=== PATIENT | female | born 1945 | race Two or more races ===

== ENCOUNTER 2019-02-14 21:44 | Inpatient (IN) | payer MEDICARE, MEDICAID ==
[~2019-02-14] VITALS: Ht 165.1 cm; Wt 61.9 kg
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
[2019-02-14 22:10] VITALS: BP 140/67
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
[2019-02-14 22:28] LABS: HEMATOCRIT 35.1 % (37.0-47.0); HEMOGLOBIN 12.6 G/DL (12.0-16.0); MEAN CORPUSCULAR VOLUME 83 FL (80-99); PLATELET COUNT 79 K/UL (150-450); RED BLOOD COUNT 4.25 M/UL (4.20-5.40); WHITE BLOOD COUNT 9.2 K/UL (4.8-10.8)
[2019-02-14 22:34] LABS: APPEARANCE,URINE CLOUDY; BILIRUBIN, URINE NEGATIVE (NEGATIVE); COLOR,URINE PALE YELLOW; GLUCOSE, URINE (UA) NEGATIVE (NEGATIVE); KETONES,URINE NEGATIVE (NEGATIVE); LEUKOCYTE ESTERASE ,URINE 3+ (NEGATIVE); NITRITE,URINE NEGATIVE (NEGATIVE); PH,URINE 7 (4.5-8.0); PROTEIN,URINE NEGATIVE (NEGATIVE); UROBILINOGEN,URINE NORMAL MG/DL (0.0-1.0)
[2019-02-14 22:36] LABS: ANION GAP 9 mmol/L (5-15); BLOOD UREA NITROGEN 22 mg/dL (7-18); CALCIUM 8.8 MG/DL (8.5-10.1); CARBON DIOXIDE 26 MMOL/L (21-32); CHLORIDE 100 MMOL/L (98-107); CREATININE 1.1 MG/DL (0.55-1.30); POTASSIUM 4.1 MMOL/L (3.5-5.1); SODIUM 135 MMOL/L (136-145)
[2019-02-14] MEDS ORDERED: cefTRIAXone 1 GM in NS 55 ML IVPB ONE (23:00)
--- NOTE | 2019-02-14 23:00 | NUR ---
ED Nurse Note: PT STATES SHE IS HUNGRY, VERIFIED W/ ERMD, PT GIVEN SANDWICH AND JUICE, PT PROVIDED W/ EXTRA WARM BLANKET FOR COMFORT, WILL CONT MONITOR. VSS.
[2019-02-14] MEDS ORDERED: SYNTHROID137 MCG ORAL (23:51)
[2019-02-14] MEDS ORDERED: KLONOPIN2 MG PO (23:51)
[2019-02-14] MEDS ORDERED: BISACODYL10 M1 RC (23:51)
[2019-02-14] MEDS ORDERED: ACETAMINOPHEN-1 EAC1 ORAL (23:51)
[2019-02-14] MEDS ORDERED: DEPAKOTE ER250 MG ORAL (23:51)
[2019-02-14] MEDS ORDERED: GLUCOPHAGE1000 MG ORAL (23:51)
[2019-02-14] MEDS ORDERED: BENADRYL25 M3 PO (23:51)
[2019-02-15] VITALS: BP 125/86
--- NOTE | 2019-02-15 00:30 | NUR ---
ED Nurse Note: PT VOID, PT CLEANED AND CHANGED INTO NEW GOWN, ALL SAFETY PRECAUTIONS IN PLACE, WILL CONT MONITOR. VSS
--- NOTE | 2019-02-15 01:09 | NUR ---
ED Nurse Note: REPORT GIVEN TO DONA CASH FROM [facility]
--- NOTE | 2019-02-15 01:15 | NUR ---
ED Nurse Note: PT TRANSFERRED TO [facility] VIA GURNEY BY MEMBERSHIP ASSISTANT, PT SENT W/ BELONGINGS W/ COMPLETED BELONGING LIST, IV INTACT AND PATENT, VSS, RESP EVEN AND UNLABORED ON RA. CARE ENDORSED TO [facility], DONA CASH.
--- NOTE | 2019-02-15 01:25 | NUR ---
NURSE NOTES: Patient admitted from ER via gurney. Patient is only Cypriot speaking, easily agitated, uncooperative. Noted with sacral redness. cleaned, applied cavilon and covered with optifoam. Bed alarm on zone 2, siderails x3. Will continue close monitoring.
--- NOTE | 2019-02-15 02:15 | NUR ---
NURSE NOTES: Placed call to Dr. Bunch for admitting orders. Awaiting call back.
--- NOTE | 2019-02-15 03:15 | NUR ---
NURSE NOTES: Placed 2nd call to Dr. Bunch for admission orders. Awaiting call back.
[2019-02-15 04:00] VITALS: BP 126/63
--- NOTE | 2019-02-15 04:05 | NUR ---
NURSE NOTES: 3rd call placed to Dr. Bunch for admission orders.
[2019-02-15] MEDS ORDERED: Tylenol #3 tab (300mg/30mg) ORAL PRN (04:45)
[2019-02-15] MEDS: metFORMIN 500mg tab ORAL SCH ×2 (06:30→16:43)
--- NOTE | 2019-02-15 06:46 | NUR ---
NURSE NOTES: Patient refused 0630 medication, started yelling when woken up and went back to sleep, covered her head with the blanket.
--- NOTE | 2019-02-15 07:41 | NUR ---
HAND-OFF: Report given to Julieta CARCAMO.
--- NOTE | 2019-02-15 07:42 | NUR ---
NURSE NOTES: Patient asleep, on room air, no sign of distress and shortness of breath; no sing of chest pain; IV LFA flushes well; side rails up x2, breaks engaged, bed at lowest position; call light within reach; will keep monitoring.
[2019-02-15 08:00] VITALS: BP 128/73
[2019-02-15] MEDS: clonazePAM 0.5mg tab ORAL SCH ×2 (08:47→21:49)
[2019-02-15 12:00] VITALS: BP 136/80
--- NOTE | 2019-02-15 13:16 | NUR ---
NURSE NOTES: Patient very agitated, trying to get out of bed. I communicated MD Bunch, waiting for order.
--- NOTE | 2019-02-15 13:21 | NUR ---
NURSE NOTES: Order received from MD Hernandez and carried out as ordered.
[2019-02-15] MEDS: LORazepam Inj 2mg/ml 1ml IV PRN ×2 (13:35→17:37)
[2019-02-15 16:00] VITALS: BP 132/77
--- NOTE | 2019-02-15 17:45 | NUR ---
NURSE NOTES: Patient agitated, trying getting out of the bed, patient is yelling on staffs, patient trying to kick staffs; I communicated MD Bunch regarding the matter. I received order and carried out as ordered.
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
--- NOTE | 2019-02-15 18:19 | General Progress Note ---
Subjective Allergies: Coded Allergies: No Known Allergies (Unverified , 02/14/19) Objective Last 24 Hour Vital Signs Date Time Temp Pulse Resp B/P (MAP) Pulse Ox O2 Delivery O2 Flow Rate FiO2 02/15/19 16:00 98.2 80 19 132/77 (95) 98 02/15/19 12:00 98.6 79 18 136/80 (98) 98 02/15/19 09:00 Room Air 02/15/19 08:00 98.7 77 18 128/73 (91) 97 02/15/19 04:00 97.6 62 18 126/63 (84) 97 02/15/19 02:02 Room Air 02/15/19 01:15 97.8 69 14 125/67 95 Room Air 02/15/19 00:00 98.1 65 16 125/86 95 Room Air 02/14/19 22:10 98.4 69 16 140/67 98 Room Air 02/14/19 22:10 67 16 Room Air 02/14/19 21:45 98.4 67 16 113/61 (78) 98 Room Air Intake and Output 02/14/19 02/15/19 19:00 07:00 Intake Total 150 ml Balance 150 ml Intake Oral 150 ml # Voids 2 Laboratory Tests 02/14/19 22:15: White Blood Count 9.2, Red Blood Count 4.25, Hemoglobin 12.6, Hematocrit 35.1L, Mean Corpuscular Volume 83, Mean Corpuscular Hemoglobin 29.6, Mean Corpuscular Hemoglobin Concent 35.8, Red Cell Distribution Width 11.0L, Platelet Count 79L, Mean Platelet Volume 7.0, Neutrophils (%) (Auto) , Lymphocytes (%) (Auto) , Monocytes (%) (Auto) , Eosinophils (%) (Auto) , Basophils (%) (Auto) , Differential Total Cells Counted 100, Neutrophils % (Manual) 62, Lymphocytes % ( Manual) 29, Monocytes % (Manual) 5, Eosinophils % (Manual) 3, Basophils % ( Manual) 0, Band Neutrophils 1, Platelet Estimate DecreasedL, Platelet Morphology Normal, Red Blood Cell Morphology Normal, Urine Color Pale yellow, Urine Appearance Cloudy, Urine pH 7, Urine Specific [place] 1.005, Urine Protein Negative, Urine Glucose (UA) Negative, Urine Ketones Negative, Urine Blood 2+H, Urine Nitrite Negative, Urine Bilirubin Negative, Urine Urobilinogen Normal, Urine Leukocyte Esterase 3+H, Urine RBC 2-4H, Urine WBC TntcH, Urine Squamous Epithelial Cells Few, Urine Bacteria ManyH, Sodium Level 135L, Potassium Level 4.1, Chloride Level 100, Carbon Dioxide Level 26, Anion Gap 9, Blood Urea Nitrogen 22H, Creatinine 1.1, Estimat Glomerular Filtration Rate , Glucose Level 222H, Calcium Level 8.8 Height (Feet): 5 Height (Inches): 5.00 Weight (Pounds): 140 Geoffrey Bunch MD Feb 15, 2019 18:19
--- NOTE | 2019-02-15 19:30 | NUR ---
HAND-OFF: Report given to Nilda/RN.
[2019-02-15 20:00] VITALS: BP 152/71
--- NOTE | 2019-02-15 20:00 | NUR ---
NURSE NOTES: Received report from DONA Plascencia. Patient confused, agitated, kicking up her legs. Pt on restraints. On room air, no signs of distress or labored breathing. IV intact, patent, and saline locked. Bed in lowest position. Sitter present. Will continue to monitor.
[2019-02-15] MEDS: Depakote ER 250mg tab ORAL SCH (21:50)
[2019-02-16] VITALS: BP 119/56
[2019-02-16] MEDS: LORazepam Inj 2mg/ml 1ml IV PRN ×3 (03:50→22:34)
[2019-02-16 04:00] VITALS: BP 139/69
[2019-02-16] MEDS: metFORMIN 500mg tab ORAL SCH ×2 (05:58→17:56)
--- NOTE | 2019-02-16 07:40 | NUR ---
HAND-OFF: Report given to DONA Padgett.
--- NOTE | 2019-02-16 07:58 | NUR ---
NURSE NOTES: received pt lying in bed, asleep after Ativan given by NOC nurse, on bilateral soft wrist restraints, padded siderails. LAC access saline locked. Bed locked at the lowest position possible, call light within easy reach, siderails up x3. Will continue to monitor pt and follow up with the plan of care.
[2019-02-16] MEDS: clonazePAM 0.5mg tab ORAL SCH ×3 (09:46→21:39)
[2019-02-16] MEDS: Depakote ER 250mg tab ORAL SCH ×3 (09:46→21:38)
--- NOTE | 2019-02-16 10:59 | General Progress Note ---
Assessment/Plan Assessment/Plan: IMPRESSION diabetes hypertension schizophrenia toxic metabolic encephalopathy acute psychosis UTI PLAN care as is add cipro ATivan restraints resume snf meds psych evaluation impression, plan, and exam edited and reviewed in detail care discussed with RN Subjective Allergies: Coded Allergies: No Known Allergies (Unverified , 02/14/19) Subjective care noted needs restraints Objective Last 24 Hour Vital Signs Date Time Temp Pulse Resp B/P (MAP) Pulse Ox O2 Delivery O2 Flow Rate FiO2 02/16/19 04:00 98.0 85 20 139/69 (92) 97 02/16/19 00:00 98.2 73 20 119/56 (77) 95 02/15/19 21:00 Room Air 02/15/19 20:00 98.1 83 20 152/71 (98) 98 02/15/19 16:00 98.2 80 19 132/77 (95) 98 02/15/19 12:00 98.6 79 18 136/80 (98) 98 Intake and Output 02/15/19 02/16/19 19:00 07:00 Intake Total 800 ml Balance 800 ml Intake Oral 800 ml # Voids 6 3 # Bowel Movements 3 Height (Feet): 5 Height (Inches): 5.00 Weight (Pounds): 140 Objective WDWN NAD clear breath sounds bilaterally without rhonchi or wheeze [id number] without MRG NABS nontender no HSM no CCE nonfocal confused and agitated Geoffrey Bunch MD Feb 16, 2019 10:59
[2019-02-16 12:00] VITALS: BP 116/72
[2019-02-16 16:00] VITALS: BP 119/82
--- NOTE | 2019-02-16 19:12 | NUR ---
HAND-OFF: Report given to DONA Munguia.
--- NOTE | 2019-02-16 19:25 | NUR ---
CASE MANAGEMENT: INITIAL REVIEW 73 YO F GABRIELLA FROM [facility] CC: INCREASE AGITATION PMHx: HTN. DM. SCHIZO. SI:AGITATION. T 98.4 HR 67 RR 16 B/P 113/61 SATS 98% ON RA NA 135 BUN 22 GLU 222 IS: NS BOLUS X 1 ROCEPHIN IV X1 PATIENT ADMITTED TO MED/SURG STATUS 02/14/2019 @ 2340 DCP: PATIENT TO BE DISCHARGED TO SNF ONCE MEDICALLY CLEARED. PLAN OF CARE: PSYCH EVAL 02/16/2019 SI:AGITATION. T 98 HR 85 RR 20 B/P 139/69 SATS 97% ON RA NO LABS TODAY IS: DEPAKOTE PO Q12H CIPRO PO Q12H METFORMIN PO BID BENADRYL PO QD SYNTHROID PO QD KLONOPIN PO Q12H MED/SURG STATUS DCP: PATIENT TO BE DISCHARGED TO SNF ONCE MEDICALLY CLEARED. Addendum: 02/17/19 at 1645 by June Linda CM INTERQUAL MET
--- NOTE | 2019-02-16 19:37 | NUR ---
NURSE NOTES: Received report from DONA Padgett. Patient sleeping. On room air, no signs of distress or labored breathing. IV intact, patent, and saline locked. Bilateral soft wrist restraints on. Bed in lowest position. Will continue to monitor.
[2019-02-16 20:00] VITALS: BP 124/55
[2019-02-16] MEDS: Ciprofloxacin 500mg tab ORAL SCH ×2 (21:00→21:38)
[2019-02-17] MEDS: LORazepam Inj 2mg/ml 1ml IV PRN ×3 (02:43→18:17)
[2019-02-17] MEDS: metFORMIN 500mg tab ORAL SCH ×2 (06:30→17:43)
--- NOTE | 2019-02-17 07:25 | NUR ---
NURSE NOTES: Received report from DONA Burks. Patient sleeping. On room air. No s/s of pain or distress. IV intact, patent, and saline lock. Bilateral soft wrist restraints on. Bed in lowest position and locked. Call light within reach. Will continue to monitor.
--- NOTE | 2019-02-17 07:27 | NUR ---
HAND-OFF: Report given to DONA Garibay and Tyson Le RN (Jamie).
--- NOTE | 2019-02-17 07:45 | NUR ---
NURSE NOTES: received pt lying in bed, awake, on bilateral soft wrist restraints, padded siderails. LFA access saline locked. Bed locked at the lowest position possible, call light within easy reach, siderails up x3. Will continue to monitor pt and follow up with the plan of care.
[2019-02-17 08:00] VITALS: BP 118/79
[2019-02-17] MEDS: Ciprofloxacin 500mg tab ORAL SCH ×2 (09:00→09:29)
[2019-02-17] MEDS: clonazePAM 0.5mg tab ORAL SCH ×2 (09:00→09:30)
[2019-02-17] MEDS: Depakote ER 250mg tab ORAL SCH ×2 (09:00→09:29)
--- NOTE | 2019-02-17 09:46 | NUR ---
NURSE NOTES: patient refused all am PO medication, nurse explained the reason why she has to take them but patient still refused. Meds were wasted, TRA Morales witnessed.
--- NOTE | 2019-02-17 10:57 | NUR ---
*-* NO INSURANCE INFORMATION IN THE BAR UNABLE TO SENF CLINICALS OR REVIEWS *-*
--- NOTE | 2019-02-17 11:49 | NUR ---
RD ASSESSMENT & RECOMMENDATIONS SEE CARE ACTIVITY FOR COMPLETE ASSESSMENT DAILY ESTIMATED NEEDS: Needs based on DM 62.5 25-30 kcals/kg 7745-8715 total kcals 1-1.5 g protein/kg 63-94 g total protein 25-30 mL/kg 0207-7652 total fluid mLs NUTRITION DIAGNOSIS: Increased pro needs r/t wound healing as evidenced by pt w/ sacral partial thickness wound. Altered nutrition related lab values r/t diabetes as evidenced by BG on adm 222. (CURRENT DIET: CCHO MED puree) PO DIET RECOMMENDATIONS-->>DIET CHANGE TO CCHO LOW for improved glycemic control (texture as tolerated) ADDITIONAL RECOMMENDATIONS: 1) Obtain a calibrated bed scale wt as able 2) HIV COUNSELOR eval for possible diet texture upgrade for improved acceptance 3) DIET CHANGE TO CCHO LOW for improved BG as pt refusing meds 4) Glucerna 1 tetra madalyn BID w/ cont variable po intake 5) Wound care: add CRYSTAL BID
[2019-02-17 12:00] VITALS: BP 118/56
--- NOTE | 2019-02-17 13:42 | General Progress Note ---
Assessment/Plan Assessment/Plan: IMPRESSION diabetes hypertension schizophrenia toxic metabolic encephalopathy acute psychosis UTI PLAN care as is add cipro ATivan restraints resume snf meds psych evaluation not safe for snf as patient is not cooperative impression, plan, and exam edited and reviewed in detail care discussed with RN Subjective Allergies: Coded Allergies: No Known Allergies (Unverified , 02/14/19) Subjective care noted needs restraints very agitated refusing meds Objective Last 24 Hour Vital Signs Date Time Temp Pulse Resp B/P (MAP) Pulse Ox O2 Delivery O2 Flow Rate FiO2 02/17/19 12:00 98.3 65 21 118/56 (76) 94 02/17/19 09:00 Room Air 02/17/19 08:00 98.6 81 18 118/79 (92) 98 02/16/19 21:00 Room Air 02/16/19 20:00 97.4 64 21 124/55 (78) 95 02/16/19 16:00 97.4 69 18 119/82 (94) 96 Intake and Output 02/16/19 02/17/19 19:00 07:00 Intake Total 100 ml Balance 100 ml Other 100 ml # Voids 2 Height (Feet): 5 Height (Inches): 5.00 Weight (Pounds): 140 Objective WDWN NAD clear breath sounds bilaterally without rhonchi or wheeze [id number] without MRG NABS nontender no HSM no CCE nonfocal confused and agitated Geoffrey Bunch MD Feb 17, 2019 13:42
[2019-02-17 16:00] VITALS: BP 143/62
--- NOTE | 2019-02-17 16:39 | NUR ---
CASE MANAGEMENT: REVIEW 02/17/2019 SI:AGITATION. T 98.3 HR 65 RR 21 B/P 118/56 SATS 94% ON RA NO LABS TODAY IS: DEPAKOTE PO Q12H CIPRO PO Q12H METFORMIN PO BID BENADRYL PO QD SYNTHROID PO QD KLONOPIN PO Q12H MED/SURG STATUS DCP: PATIENT TO BE DISCHARGED TO SNF ONCE MEDICALLY CLEARED.
[2019-02-17] MEDS ORDERED: NS 275ml ONE (17:35)
[2019-02-17] MEDS ORDERED: Tubing IV Secondary IV ONE (17:35)
--- NOTE | 2019-02-17 19:37 | NUR ---
HAND-OFF: Report given to DONA Munguia.
--- NOTE | 2019-02-17 19:45 | NUR ---
NURSE NOTES: Received report from DONA Garibay. Patient Tajik speaking. A&Ox1-2. On room air, no signs of distress or labored breathing. IV intact, patent, and infusing IV antibiotics. Bilateral soft wrist restraints on. Bed in lowest position with call light in reach. Will continue with plan of care.
[2019-02-17 20:00] VITALS: BP 136/59
[2019-02-17] MEDS: Depakote ER 500mg tab ORAL SCH ×2 (21:00→21:09)
[2019-02-18] VITALS: BP 128/58
[2019-02-18] MEDS: LORazepam Inj 2mg/ml 1ml IV PRN ×4 (00:26→21:45)
--- NOTE | 2019-02-18 00:30 | Consultation ---
DATE OF CONSULTATION: 02/17/2019 CONSULTING PHYSICIAN: Marilyn Liriano M.D. HISTORY OF PRESENT ILLNESS: The patient is a 73-year-old female with a history of diabetes, hypertension, schizophrenia, and dementia who has been admitted to the hospital for medical stabilization. The patient has been violent in the hospital. She is uncooperative, refusing p.o. medication and care. The patient not following staff's direction. The patient has cognitive impairment. PAST PSYCHIATRIC HISTORY: Schizophrenia and dementia. PAST MEDICAL HISTORY: Diabetes and hypertension. ALLERGIES: No known drug allergies. SUBSTANCE ABUSE HISTORY: No known history of illicit drug use or alcohol. MENTAL STATUS EXAMINATION: Alert and oriented x3. Mood is agitated. Affect is constricted. Congruent with mood. Thought process is concrete. Thought content, no suicidal or homicidal ideation. ASSESSMENT: [place] I Schizophrenia. Dementia with behavior disturbance. [place] II Deferred. [place] III As above. [place] IV Low. [place] V 20. PLAN: 1. The patient will be continued on Ativan. 2. We will also add another medication to lower her agitation. 3. Provide the patient with reality orientation and supportive therapy. Marilyn Liriano M.D. DR: HILL JOB#: [id number] CC:
[2019-02-18 04:00] VITALS: BP 94/64
[2019-02-18] MEDS: metFORMIN 500mg tab ORAL SCH ×2 (06:06→17:06)
--- NOTE | 2019-02-18 07:47 | NUR ---
HAND-OFF: Report given to DONA Plascencia.
--- NOTE | 2019-02-18 07:52 | NUR ---
NURSE NOTES: Patient awake, very confused; Yakut speaking; on room air, no sign of distress and shortness of breath; no sing of chest pain; IV Left FA flushes well; bed at lowest position, side rails up x2, breaks engaged; bilateral soft restrains in place; bed alarm on; will keep monitoring.
[2019-02-18 08:00] VITALS: BP 133/54
--- NOTE | 2019-02-18 08:34 | General Progress Note ---
Assessment/Plan Assessment/Plan: IMPRESSION diabetes hypertension schizophrenia toxic metabolic encephalopathy acute psychosis UTI PLAN care as is change cipro to zosyn ATivan restraints advance psych rx resume snf meds hope to dc soon not safe for snf as patient is not cooperative impression, plan, and exam edited and reviewed in detail care discussed with RN Subjective Allergies: Coded Allergies: No Known Allergies (Unverified , 02/14/19) Subjective care noted needs restraints very agitated refusing meds Objective Last 24 Hour Vital Signs Date Time Temp Pulse Resp B/P (MAP) Pulse Ox O2 Delivery O2 Flow Rate FiO2 02/18/19 08:00 97.9 65 18 133/54 (80) 98 02/18/19 04:00 98.4 66 20 94/64 (74) 97 02/18/19 00:00 97.7 59 18 128/58 (81) 97 02/17/19 21:00 Room Air 02/17/19 20:00 98.1 75 20 136/59 (84) 94 02/17/19 16:00 97.6 67 19 143/62 (89) 97 02/17/19 12:00 98.3 65 21 118/56 (76) 94 02/17/19 09:00 Room Air Intake and Output 02/17/19 02/18/19 18:59 06:59 Intake Total 500 ml 200 ml Balance 500 ml 200 ml IV Total 200 ml Other 500 ml # Voids 2 Height (Feet): 5 Height (Inches): 5.00 Weight (Pounds): 140 Objective WDWN NAD clear breath sounds bilaterally without rhonchi or wheeze [id number] without MRG NABS nontender no HSM no CCE nonfocal confused and agitated Geoffrey Bunch MD Feb 18, 2019 08:34
[2019-02-18] MEDS: Depakote ER 500mg tab ORAL SCH ×2 (08:43→21:44)
[2019-02-18 12:00] VITALS: BP 127/61
[2019-02-18] MEDS: Piperacillin/Tazobactam 3.375 GM in NS 110 ML IVPB SCH ×2 (13:23→21:57)
--- NOTE | 2019-02-18 14:14 | NUR ---
*-* INSURANCE *-* ALL CLINICALS AND REVIEWS HAVE BEEN FAXED TO: [employer] AUTH# [id number] GLORY: DEBBI F:[phone] (FAX CLINICALS)
[2019-02-18 16:00] VITALS: BP 130/60
--- NOTE | 2019-02-18 19:39 | NUR ---
HAND-OFF: Report given to DONA Gilmore.
--- NOTE | 2019-02-18 20:15 | NUR ---
NURSE NOTES: PATIENT IN BED, ASLEEP, AROUSABLE TO TOUCH, ALERT TO NAME. IV IN PLACE, PATENT. PATIENT ON BILATERAL SOFT WRIST RESTRAINTS FOR PATIENT SAFETY. NO S/S DISTRESS OR PAIN NOTED. BED IN LOWEST POSITION, LOCKED, BED ALARM ON. WILL CONTINUE TO MONITOR.
[2019-02-18 20:50] VITALS: BP 125/63
[2019-02-19 00:43] VITALS: BP 131/55
[2019-02-19] MEDS: LORazepam Inj 2mg/ml 1ml IV PRN ×5 (01:38→17:18)
--- NOTE | 2019-02-19 01:38 | NUR ---
NURSE NOTES: PATIENT RESTLESS, ATIVAN 1 MG IV PRN WAS GIVEN NEEDED. PATIENT STILL TRYING TO GET OUT RESTRAINTS. NEW IV ALSO INSERTED ON LEFT FOREARM 22 GAUGE, OLD IV ON LEFT FOREARM REMOVED. WILL CONTINUE TO MONITOR.
[2019-02-19 04:51] VITALS: BP 138/61
[2019-02-19] MEDS: metFORMIN 500mg tab ORAL SCH ×2 (05:39→17:18)
[2019-02-19] MEDS: Piperacillin/Tazobactam 3.375 GM in NS 110 ML IVPB SCH ×3 (05:40→22:04)
--- NOTE | 2019-02-19 05:45 | Progress Note ---
DATE: 02/18/2019 NOTE: POOR AUDIO SUBJECTIVE: The patient presented with anxiety behavior. MENTAL STATUS EXAMINATION: confused, disoriented anxious. Thought process, there is a paucity of thought content. Thought content, no suicidal or homicidal ideation. PLAN: Continue current medications. Provide the patient with reality orientation Marilyn Liriano M.D. DR: HANANE JOB#: [id number] CC: FARHAT
--- NOTE | 2019-02-19 07:16 | NUR ---
HAND-OFF: Report given to ALIREZA KUMAR RN.
--- NOTE | 2019-02-19 07:21 | NUR ---
NURSE NOTES: Patient awake, Azeri speaking; on room air, no sign of distress and shortness of breath; no sign of chest pain; IV Left FA Zosyn running; side rails padded for seizure percussion, side rails up x2, breaks engaged, bed at lowest position; bilateral soft restrain in place. will keep monitoring.
[2019-02-19 08:00] VITALS: BP 130/66
[2019-02-19] MEDS: Depakote ER 500mg tab ORAL SCH ×2 (09:08→21:07)
--- NOTE | 2019-02-19 10:05 | General Progress Note ---
Assessment/Plan Assessment/Plan: IMPRESSION diabetes hypertension schizophrenia toxic metabolic encephalopathy acute psychosis UTI PLAN care as is on zosyn ATivan restraints advance psych rx- and await clearance snf meds hope to dc soon not safe for snf as patient is not cooperative impression, plan, and exam edited and reviewed in detail care discussed with RN Subjective Allergies: Coded Allergies: No Known Allergies (Unverified , 02/14/19) Subjective care noted needs restraints still agitated still refusing meds Objective Last 24 Hour Vital Signs Date Time Temp Pulse Resp B/P (MAP) Pulse Ox O2 Delivery O2 Flow Rate FiO2 02/19/19 09:00 Room Air 02/19/19 08:00 97.7 77 18 130/66 (87) 95 02/19/19 04:51 97.9 56 18 138/61 (86) 94 02/19/19 00:43 97.2 57 18 131/55 (80) 94 02/18/19 21:00 Room Air 02/18/19 20:50 97.7 57 18 125/63 (83) 94 02/18/19 16:00 98.0 63 18 130/60 (83) 98 02/18/19 12:00 97.8 71 19 127/61 (83) 98 Intake and Output 02/18/19 02/19/19 18:59 06:59 Intake Total 710.0 ml 137.5 ml Output Total 2 ml Balance 710.0 ml 135.5 ml IV Total 110.0 ml 137.5 ml Other 600 ml Output Urine Total 2 ml # Voids 2 # Bowel Movements 1 Height (Feet): 5 Height (Inches): 5.00 Weight (Pounds): 135 Objective WDWN NAD clear breath sounds bilaterally without rhonchi or wheeze [id number] without MRG NABS nontender no HSM no CCE nonfocal confused and agitated Geoffrey Bunch MD Feb 19, 2019 10:05
--- NOTE | 2019-02-19 10:25 | NUR ---
*-* INSURANCE *-* UPDATED CLINICALS HAVE BEEN FAXED TO: [employer] AUTH# [id number] GLORY: DEBBI F:[phone] (FAX CLINICALS)
[2019-02-19 12:00] VITALS: BP 136/70
--- NOTE | 2019-02-19 15:41 | NUR ---
CASE MANAGEMENT: REVIEW 02/18/2019 SI:AGITATION. T 98.3 HR 79 RR 18 B/P 136/70 SATS 96% ON RA NO LABS TODAY IS: DEPAKOTE PO Q12H CIPRO PO Q12H METFORMIN PO BID BENADRYL PO QD SYNTHROID PO QD KLONOPIN PO Q12H MED/SURG STATUS DCP: PATIENT TO BE DISCHARGED TO SNF ONCE MEDICALLY CLEARED. 02/19/2019 SI:AGITATION. T 98.3 HR 79 RR 18 B/P 136/70 SATS 96% ON RA NO LABS TODAY IS: DEPAKOTE PO Q12H CIPRO PO Q12H METFORMIN PO BID BENADRYL PO QD SYNTHROID PO QD KLONOPIN PO Q12H MED/SURG STATUS DCP: PATIENT TO BE DISCHARGED TO SNF ONCE MEDICALLY CLEARED. PLAN OF CARE: AWAITING PSYCH CLEARANCE
[2019-02-19 16:00] VITALS: BP 138/76
--- NOTE | 2019-02-19 19:49 | NUR ---
HAND-OFF: Report given to Mando figueroa/DONA Martinez.
--- NOTE | 2019-02-19 19:49 | NUR ---
NURSE NOTES: Received patient from DONA Plascencia. Patient is awake and confused laying on the bed with bilateral soft restraints on the wrist for safety of the patient. Pulse is present on the bilateral wrist, warm to touch, normal skin color, and with mobility. Patient is breathing evenly and unlabored without signs of distress, discomfort, or SOB on a room air. No signs of pain noted at this time. 22 g IV noted on the LFA intact, clean, and dry. Side rails are padded for seizure precaution. Bed is placed at the lowest with alarm and brakes on. Call light is placed within reach for any assistance needed. Will continue to monitor.
[2019-02-19 20:00] VITALS: BP 126/70
[2019-02-20] VITALS: BP 139/66
[2019-02-20] MEDS: LORazepam Inj 2mg/ml 1ml IV PRN ×4 (00:15→15:49)
--- NOTE | 2019-02-20 03:15 | Progress Note ---
DATE: 02/19/2019 SUBJECTIVE: The patient is calmer. Still has episodes of agitation. Responds to internal stimuli. The patient does not follow directions. She has poor memory. Not engaged. She still has waxing and waning consciousness. MENTAL STATUS EXAMINATION: The patient is asleep, arousable with verbal stimuli. Has psychomotor agitation. Mood is neutral. Affect is flat. Thought process, there is some paucity of thought content. Thought content, no suicidal or homicidal ideations. ASSESSMENT: Encephalopathy . PLAN: We will continue current medication. Provide the patient with reality orientation. Marilyn Liriano M.D. DR: STEFAN JOB#: [id number] CC:
[2019-02-20 04:00] VITALS: BP 139/77
[2019-02-20] MEDS: metFORMIN 500mg tab ORAL SCH ×2 (05:57→15:49)
--- NOTE | 2019-02-20 06:00 | NUR ---
NURSE NOTES: PATIENT ASLEEP, NO DISTRESS.
[2019-02-20] MEDS: Piperacillin/Tazobactam 3.375 GM in NS 110 ML IVPB SCH ×3 (06:14→22:29)
--- NOTE | 2019-02-20 07:06 | NUR ---
HAND-OFF: Report given to DONA Plascencia. Patient has new 22 g IV site on the right hand due to the previous site being puffy and red. Informed DONA Plascencia.
--- NOTE | 2019-02-20 07:38 | NUR ---
NURSE NOTES: Patient asleep; on room air, no sign of distress and shortness of breath; no sing of chest pain; Bilateral soft wrist restrain in place; side rails padded for seizure percussion, side rails up x2, breaks engaged, bed alarm on; will keep monitoring.
[2019-02-20 08:00] VITALS: BP 131/83
[2019-02-20] MEDS: Depakote ER 500mg tab ORAL SCH ×2 (08:22→20:51)
--- NOTE | 2019-02-20 08:30 | General Progress Note ---
Assessment/Plan Assessment/Plan: IMPRESSION diabetes hypertension schizophrenia toxic metabolic encephalopathy acute psychosis UTI PLAN care as is on zosyn x 5 days ATivan restraints advance psych rx- and await clearance snf meds dc if cleared by psych impression, plan, and exam edited and reviewed in detail care discussed with RN Subjective ROS Limited/Unobtainable: Yes Allergies: Coded Allergies: No Known Allergies (Unverified , 02/14/19) Subjective care noted needs restraints psych appreciated Objective Last 24 Hour Vital Signs Date Time Temp Pulse Resp B/P (MAP) Pulse Ox O2 Delivery O2 Flow Rate FiO2 02/20/19 04:00 97.4 68 20 139/77 (97) 97 02/20/19 00:00 98.2 65 18 139/66 (90) 95 02/19/19 21:00 Room Air 02/19/19 20:00 98.0 72 16 126/70 (88) 96 02/19/19 16:00 98.5 82 18 138/76 (96) 97 02/19/19 12:00 98.3 79 18 136/70 (92) 96 02/19/19 09:00 Room Air Intake and Output 02/19/19 02/20/19 19:00 07:00 Intake Total 1032.5 ml 350.0 ml Balance 1032.5 ml 350.0 ml Intake Oral 840 ml 240 ml IV Total 192.5 ml 110.0 ml # Voids 6 1 # Bowel Movements 2 1 Height (Feet): 5 Height (Inches): 5.00 Weight (Pounds): 135 Objective WDWN NAD clear breath sounds bilaterally without rhonchi or wheeze [id number] without MRG NABS nontender no HSM no CCE nonfocal confused Geoffrey Bunch MD Feb 20, 2019 08:30
--- NOTE | 2019-02-20 09:53 | NUR ---
NURSE NOTES: There is a discharge order for this patient. I communicated MD Liriano, if MD roman clear patient for discharge. Waiting for order.
--- NOTE | 2019-02-20 10:45 | NUR ---
NURSE NOTES: MD Liriano cleared patient for discharge to SNF.
[2019-02-20] MEDS ORDERED: DIPHENHYDRAMINE25 M1 ORAL (11:30)
[2019-02-20] MEDS ORDERED: DIVALPROEX SOD500 MG PO (11:32)
[2019-02-20] MEDS ORDERED: DIVALPROEX SOD500 M2 PO (11:36)
[2019-02-20] MEDS ORDERED: METFORMIN HCL500 M1 ORAL (11:38)
[2019-02-20] MEDS ORDERED: ZOSYN 3.373.375 GM/1 IVPB (11:39)
--- NOTE | 2019-02-20 11:58 | NUR ---
DISCHARGE PLANNING: NOTE CLINICALS FAXED TO [facility]
[2019-02-20 11:59] VITALS: BP 136/80
--- NOTE | 2019-02-20 12:44 | NUR ---
*-* INSURANCE *-* UPDATED CLINICALS HAVE BEEN FAXED TO: [employer] AUTH# [id number] GLORY: DEBBI F:[phone] (FAX CLINICALS)
[2019-02-20 16:00] VITALS: BP 130/74
--- NOTE | 2019-02-20 16:35 | NUR ---
CASE MANAGEMENT: REVIEW 02/20/2019 SI:AGITATION. T 98.4 HR 80 RR 19 B/P 130/74 SATS 97% ON RA NO LABS TODAY IS: DEPAKOTE PO Q12H CIPRO PO Q12H METFORMIN PO BID BENADRYL PO QD SYNTHROID PO QD KLONOPIN PO Q12H MED/SURG STATUS DCP: PATIENT TO BE DISCHARGED TO SNF ONCE MEDICALLY CLEARED.
--- NOTE | 2019-02-20 19:34 | NUR ---
HAND-OFF: Report given to DONA Zuniga.
--- NOTE | 2019-02-20 19:55 | NUR ---
NURSE NOTES: Received patient in bed, asleep, no acute distress noted, on room air, patient is incontinent of bowel and bladder, has non behavioral bilateral soft wrist restraints, VSS, afebrile, call light is within reach, bed is in low position, locked and alarm is on. Will continue to monitor for safety and comfort, ensure patients needs are met.
[2019-02-20 20:00] VITALS: BP 141/67
--- NOTE | 2019-02-20 23:30 | Progress Note ---
DATE: 02/20/2019 SUBJECTIVE: The patient is presenting with anxiety, agitation, waxing and waning consciousness, memory impairment, not able to answer the questions. She is calmer today, more cooperative. MENTAL STATUS EXAMINATION: The patient is alert; however confused, disoriented. Mood is anxious. Affect is constricted. Congruent mood. Thought process is concrete. Thought content, no suicidal or homicidal ideation. ASSESSMENT: Encephalopathy. PLAN: 1. We will continue current medications. 2. Provide the patient with the reality orientation and supportive therapy. Marilyn Liriano M.D. DR: Mj JOB#: [id number] CC:
[2019-02-21] VITALS: BP 123/67
[2019-02-21 04:00] VITALS: BP 131/58
[2019-02-21] MEDS: Piperacillin/Tazobactam 3.375 GM in NS 110 ML IVPB SCH ×3 (05:53→21:02)
[2019-02-21] MEDS: metFORMIN 500mg tab ORAL SCH ×2 (06:17→17:08)
--- NOTE | 2019-02-21 07:30 | NUR ---
HAND-OFF: Report given to Lois CARCAMO.
--- NOTE | 2019-02-21 07:39 | NUR ---
NURSE NOTES: received report from DONA Holland. patient in bed. having breakfast. disoriented. aggressive. yakut only. IV RH hep. intact. running zosyn. bed in the lowest position . call light within reach. alarm on. cleared by Dr. terrazas for DC. ESCL colionized by DR. Alcantar. will continue to provide plan of care.
[2019-02-21 08:00] VITALS: BP 144/65
--- NOTE | 2019-02-21 08:54 | General Progress Note ---
Assessment/Plan Assessment/Plan: IMPRESSION diabetes hypertension schizophrenia toxic metabolic encephalopathy acute psychosis UTI PLAN care as is on zosyn x 3 days restraints as needed advance psych rx- and await clearance snf meds will need locked snf unit impression, plan, and exam edited and reviewed in detail care discussed with RN Subjective Allergies: Coded Allergies: No Known Allergies (Unverified , 02/14/19) Subjective care noted psych appreciated Objective Last 24 Hour Vital Signs Date Time Temp Pulse Resp B/P (MAP) Pulse Ox O2 Delivery O2 Flow Rate FiO2 02/21/19 08:00 98.6 76 18 144/65 (91) 99 02/21/19 04:00 96.1 55 18 131/58 (82) 02/21/19 00:00 97.5 60 18 123/67 (85) 02/20/19 21:00 Room Air 02/20/19 20:00 97.3 61 18 141/67 (91) 02/20/19 16:00 98.4 80 19 130/74 (92) 97 02/20/19 11:59 98.6 85 20 136/80 (98) 98 02/20/19 09:00 Room Air Intake and Output 02/20/19 02/21/19 19:00 07:00 Intake Total 1080.0 ml Balance 1080.0 ml Intake Oral 860 ml IV Total 220.0 ml # Voids 6 # Bowel Movements 2 Height (Feet): 5 Height (Inches): 5.00 Weight (Pounds): 135 Objective WDWN NAD clear breath sounds bilaterally without rhonchi or wheeze [id number] without MRG NABS nontender no HSM no CCE nonfocal confused Geoffrey Bunch MD Feb 21, 2019 08:54
[2019-02-21] MEDS: Depakote ER 500mg tab ORAL SCH ×2 (08:58→20:57)
--- NOTE | 2019-02-21 09:33 | NUR ---
RD ASSESSMENT & RECOMMENDATIONS SEE CARE ACTIVITY FOR COMPLETE ASSESSMENT DAILY ESTIMATED NEEDS: Needs based on DM 62.5kg 25-30 kcals/kg 9520-4646 total kcals 1-1.5 g protein/kg 63-94 g total protein 25-30 mL/kg 6598-9184 total fluid mLs NUTRITION DIAGNOSIS: 1) Increased pro needs r/t wound healing as evidenced by pt w/ sacral partial thickness wound. 2) Altered nutrition related lab values r/t diabetes as evidenced by BG on adm 222. CURRENT DIET: CCHO MED puree PO DIET RECOMMENDATIONS: CCHO LOW for improved glycemic control (texture as tolerated) --- ADDITIONAL RECOMMENDATIONS: 1) Obtain a calibrated bed scale wt as able 2) RISK CONSULTANT eval for possible diet texture upgrade for improved acceptance 3) DIET CHANGE TO CCHO LOW for improved BG if pt continues to refuse meds 4) Glucerna 1 tetra maadlyn BID w/ cont variable po intake 5) Wound care: add CRYSTAL BID + Vit C 250mg daily + MVI x1
[2019-02-21] MEDS: LORazepam Inj 2mg/ml 1ml IV PRN (09:41)
--- NOTE | 2019-02-21 10:21 | NUR ---
DISCHARGE PLANNING: NOTE (UPDATED) [facility] NOT WILLING TO ACCEPT THIS PATIENT. PATIENT REFERRED TO THE FOLLOWING LOCKED FACILITIES [facility] >> [facility] HAS RECEIVED CLINICALS AND IS REVIEWING FOR ACCEPTANCE [facility] >>> [facility] UNABLE TO ACCEPT DUE TO NO FEMALE BEDS AT THIS TIME. [facility] >>>> PER HECTOR SHE RECEIVED CLINICALS AND REVIEWING FOR ACCEPTANCE.
--- NOTE | 2019-02-21 11:34 | NUR ---
*-* INSURANCE *-* UPDATED CLINICALS AND REVIEWS HAVE BEEN FAXED TO: [employer] AUTH# [id number] GLORY: DEBBI F:[phone] (FAX CLINICALS)
[2019-02-21 12:00] VITALS: BP 137/64
[2019-02-21 16:00] VITALS: BP 131/82
--- NOTE | 2019-02-21 19:28 | NUR ---
NURSE NOTES: Pt received in bed, restraints in place, greeted me when I spoke to her, asked how she was doing and she said well, gave the patient something to drink, IV in place, will continue to monitor.
--- NOTE | 2019-02-21 19:31 | NUR ---
HAND-OFF: Report given to DONA Schumacher.
[2019-02-21 20:00] VITALS: BP 135/86
[2019-02-22] VITALS: BP 150/79
--- NOTE | 2019-02-22 00:20 | Psych Consult Progress Note ---
Psychiatry Progress Note Psychiatry Progress Note Medications Current Medications Medications (Trade) Dose Ordered Sig/Jesenia Route PRN Reason Start Time Stop Time Status Last Admin Dose Admin Acetaminophen/ Codeine Phosphate (Tylenol #3) 1 tab Q6H PRN ORAL For Pain 02/15/19 04:45 02/22/19 04:44 Bisacodyl (Dulcolax) 10 mg DAILY PRN RECTAL Constipation 02/15/19 04:45 03/17/19 04:44 Diphenhydramine HCl (Benadryl) 25 mg DAILY ORAL 02/15/19 09:00 03/17/19 08:59 02/21/19 08:58 Diphenhydramine HCl (Benadryl) 25 mg Q6H PRN IM agitation 02/17/19 13:45 03/19/19 13:44 Divalproex Sodium (Depakote ER) 500 mg EVERY 12 HOURS ORAL 02/17/19 21:00 03/19/19 20:59 02/21/19 20:57 Levothyroxine Sodium (Synthroid) 75 mcg DAILY@0630 ORAL 02/15/19 06:30 03/17/19 06:29 02/21/19 06:17 Lorazepam (Ativan 2mg/ml 1ml) 1 mg Q3H PRN IV For Anxiety 02/15/19 13:30 02/22/19 13:29 02/21/19 09:41 Metformin HCl (Glucophage) 500 mg BID@0630,1630 ORAL 02/15/19 06:30 03/17/19 06:29 02/21/19 17:08 Piperacillin Sod/ Tazobactam Sod 3.375 gm/Sodium Chloride 110 ml @ 27.5 mls/hr EVERY 8 HOURS IVPB 02/18/19 14:00 02/23/19 13:59 02/21/19 21:02 Neurological/Psychiatric: Reports: anxiety, depressed, emotional problems Allergies: Coded Allergies: No Known Allergies (Unverified , 02/14/19) Objective Data Height (Feet): 5 Height (Inches): 5.00 Weight (Pounds): 135 Appearance: disheveled Behavior Mannerisms: poor eye contact Mental Status Exam - Affect: labile Mental Status Exam - Mood: anxious, agitated Speech: clear Mental Status Exam - Cognition: no abnormalities Assessment/Plan Assessment/Plan: Encephalopathy. PLAN: 1. We will continue current medications. 2. Provide the patient with the reality orientation and supportive therapy. Marilyn Liriano MD Feb 22, 2019 00:20
[2019-02-22 04:00] VITALS: BP 145/87
[2019-02-22] MEDS: Piperacillin/Tazobactam 3.375 GM in NS 110 ML IVPB SCH ×3 (05:30→21:19)
[2019-02-22] MEDS: metFORMIN 500mg tab ORAL SCH ×2 (06:09→16:56)
--- NOTE | 2019-02-22 07:41 | NUR ---
HAND-OFF: Report given to Mimi Kinney RN.
--- NOTE | 2019-02-22 07:56 | NUR ---
NURSE NOTES: Received report from DONA Jackson. Rounding done with outgoing nurse. Patient asleep. Pt on restraints. Cobasesyn is running at this time. Bed in lowest position, call light within reach. Will continue to monitor.
[2019-02-22 08:00] VITALS: BP 130/63
[2019-02-22] MEDS: Depakote ER 500mg tab ORAL SCH ×2 (09:15→20:24)
[2019-02-22] MEDS: LORazepam Inj 2mg/ml 1ml IV PRN ×4 (11:35→23:27)
--- NOTE | 2019-02-22 11:50 | General Progress Note ---
Assessment/Plan Assessment/Plan: IMPRESSION diabetes hypertension schizophrenia toxic metabolic encephalopathy acute psychosis UTI PLAN care as is on zosyn x 2 days restraints as needed advance psych rx- and await clearance snf meds will need locked snf unit- awaiting CM to assist impression, plan, and exam edited and reviewed in detail care discussed with RN Subjective Allergies: Coded Allergies: No Known Allergies (Unverified , 02/14/19) Subjective care noted psych appreciated Objective Last 24 Hour Vital Signs Date Time Temp Pulse Resp B/P (MAP) Pulse Ox O2 Delivery O2 Flow Rate FiO2 02/22/19 09:00 Room Air 02/22/19 08:00 97.0 62 16 130/63 (85) 99 02/22/19 04:00 97.0 82 18 145/87 (106) 97 02/22/19 00:00 97.2 75 19 150/79 (102) 98 02/21/19 21:00 Room Air 02/21/19 20:00 98.1 67 18 135/86 (102) 97 02/21/19 16:00 98.5 76 18 131/82 (98) 98 02/21/19 12:00 97.9 79 18 137/64 (88) 99 Intake and Output 02/21/19 02/22/19 19:00 07:00 Intake Total 192.5 ml 1570.0 ml Output Total 400 ml Balance 192.5 ml 1170.0 ml Intake Oral 860 ml IV Total 192.5 ml 110.0 ml Other 600 ml Output Urine Total 400 ml # Voids 4 # Bowel Movements 2 Height (Feet): 5 Height (Inches): 5.00 Weight (Pounds): 135 Objective WDWN NAD clear breath sounds bilaterally without rhonchi or wheeze [id number] without MRG NABS nontender no HSM no CCE nonfocal confused Geoffrey Bunch MD Feb 22, 2019 11:50
[2019-02-22 12:00] VITALS: BP 125/73
--- NOTE | 2019-02-22 13:40 | NUR ---
NURSE NOTES: Dr. Bunch ordered ativan 1mg iv q3 prn for anxiety. Noted and carried out.
--- NOTE | 2019-02-22 15:16 | NUR ---
DISCHARGE PLANNING: NOTE F/U CALL PLACED TO [facility] AND [facility] ADMISSIONS IS NOT AVAILABLE ON THE WEEKENDS. NO FAMILY LISTED ON F/S SSW CONSULT TO SEE IF FAMILY CAN BE LOCATED.
[2019-02-22 16:00] VITALS: BP 132/63
--- NOTE | 2019-02-22 19:39 | NUR ---
HAND-OFF: Report given to DONA Abebe.
--- NOTE | 2019-02-22 20:11 | NUR ---
NURSE NOTES: PATIENT IN BED, AWAKE, ANXIOUS, RESTLESS. IV IN PLACE, PATENT. GIVEN ATIVAN PRN ORDERED. PATIENT ON BILATERAL SOFT WRIST RESTRAINTS FOR PATIENT SAFETY. NO S/S DISTRESS OR PAIN NOTED. BED IN LOWEST POSITION, LOCKED, BED ALARM ON. WILL CONTINUE TO MONITOR.
[2019-02-22 20:38] VITALS: BP 116/80
[2019-02-23 00:20] VITALS: BP 108/48
[2019-02-23] MEDS: LORazepam Inj 2mg/ml 1ml IV PRN ×5 (03:44→22:24)
[2019-02-23 04:43] VITALS: BP 118/55
--- NOTE | 2019-02-23 04:45 | NUR ---
NURSE NOTES: PATIENT ASLEEP, NO DISTRESS, SNORING.
[2019-02-23] MEDS: metFORMIN 500mg tab ORAL SCH ×2 (05:34→16:06)
[2019-02-23] MEDS: Piperacillin/Tazobactam 3.375 GM in NS 110 ML IVPB SCH ×2 (05:34→14:17)
--- NOTE | 2019-02-23 07:32 | NUR ---
HAND-OFF: Report given to HECTOR WALTER RN.
[2019-02-23] MEDS: Depakote ER 500mg tab ORAL SCH ×2 (09:41→21:00)
[2019-02-23 12:00] VITALS: BP 132/64
--- NOTE | 2019-02-23 12:04 | General Progress Note ---
Assessment/Plan Assessment/Plan: IMPRESSION diabetes hypertension schizophrenia toxic metabolic encephalopathy acute psychosis UTI PLAN care as is on zosyn x 2 days restraints as needed advance psych rx- and await clearance snf meds will need locked snf unit- awaiting CM to assist impression, plan, and exam edited and reviewed in detail care discussed with RN Subjective Allergies: Coded Allergies: No Known Allergies (Unverified , 02/14/19) Subjective care noted psych appreciated Objective Last 24 Hour Vital Signs Date Time Temp Pulse Resp B/P (MAP) Pulse Ox O2 Delivery O2 Flow Rate FiO2 02/23/19 04:43 97.5 56 18 118/55 (76) 97 02/23/19 00:20 97.0 63 18 108/48 (68) 100 02/22/19 21:46 Room Air 02/22/19 20:38 97.1 96 18 116/80 (92) 97 02/22/19 16:00 98.4 65 18 132/63 (86) 95 Intake and Output 02/22/19 02/23/19 19:00 07:00 Intake Total 590.0 ml 857.5 ml Balance 590.0 ml 857.5 ml Intake Oral 480 ml 120 ml IV Total 110.0 ml 137.5 ml Other 600 ml # Voids 5 1 # Bowel Movements 3 Height (Feet): 5 Height (Inches): 5.00 Weight (Pounds): 135 Objective WDWN NAD clear breath sounds bilaterally without rhonchi or wheeze [id number] without MRG NABS nontender no HSM no CCE nonfocal confused Geoffrey Bunch MD Feb 23, 2019 12:04
[2019-02-23 16:00] VITALS: BP 127/81
--- NOTE | 2019-02-23 18:26 | NUR ---
CASE MANAGEMENT: REVIEW 02/23/2019 SI:AGITATION. T 98.1 HR 72 RR 18 B/P 127/81 SATS 97% ON RA NO LABS TODAY IS: DEPAKOTE PO Q12H CIPRO PO Q12H METFORMIN PO BID BENADRYL PO QD SYNTHROID PO QD KLONOPIN PO Q12H MED/SURG STATUS DCP: PATIENT TO BE DISCHARGED TO SNF ONCE MEDICALLY CLEARED.
--- NOTE | 2019-02-23 19:00 | NUR ---
NURSE NOTES: patient is very agitated, given Ativan IV as per dr's order, pt never relaxed. Pt yells, throws her legs up, and even she's restrained she still tries to put her legs out of the bed in between the siderails. Nurse put her bed close to the wall. Nurse left message for dr. Liriano.
[2019-02-23 20:00] VITALS: BP 130/61
--- NOTE | 2019-02-23 20:02 | NUR ---
HAND-OFF: Report given to DONA Mederos.
--- NOTE | 2019-02-23 20:03 | NUR ---
NURSE NOTES: PATIENT IN BED, AWAKE, ANXIOUS, RESTLESS. IV IN PLACE, Patient has been given ATIVAN PRN q3 ORDERED. PATIENT ON BILATERAL SOFT WRIST RESTRAINTS FOR PATIENT SAFETY. NO S/S DISTRESS OR PAIN NOTED. BED IN LOWEST POSITION, LOCKED, BED ALARM ON. WILL CONTINUE TO MONITOR.
[2019-02-24] VITALS: BP 147/83
[2019-02-24] MEDS: LORazepam Inj 2mg/ml 1ml IV PRN ×5 (01:18→16:49)
[2019-02-24 04:00] VITALS: BP 96/58
[2019-02-24] MEDS: metFORMIN 500mg tab ORAL SCH ×2 (06:30→16:49)
--- NOTE | 2019-02-24 07:31 | NUR ---
HAND-OFF: Report given to DONA Padgett.
[2019-02-24 08:00] VITALS: BP 151/80
--- NOTE | 2019-02-24 08:05 | General Progress Note ---
Assessment/Plan Assessment/Plan: IMPRESSION diabetes hypertension schizophrenia toxic metabolic encephalopathy acute psychosis UTI PLAN care as is on zosyn x 2 days restraints as needed advance psych rx- and await clearance snf meds will need locked snf unit- awaiting CM to assist impression, plan, and exam edited and reviewed in detail care discussed with RN Subjective Allergies: Coded Allergies: No Known Allergies (Unverified , 02/14/19) Subjective care noted psych appreciated Objective Last 24 Hour Vital Signs Date Time Temp Pulse Resp B/P (MAP) Pulse Ox O2 Delivery O2 Flow Rate FiO2 02/24/19 04:00 97.9 67 19 96/58 (71) 98 02/24/19 00:00 97.1 64 19 147/83 (104) 94 02/23/19 21:00 Room Air 02/23/19 20:00 97.2 69 19 130/61 (84) 95 02/23/19 16:00 98.1 72 18 127/81 (96) 97 02/23/19 12:00 98.7 76 18 132/64 (86) 97 02/23/19 09:00 Room Air Intake and Output 02/23/19 02/24/19 19:00 07:00 Intake Total 1042.5 ml 970 ml Output Total 200 ml Balance 1042.5 ml 770 ml Intake Oral 120 ml IV Total 192.5 ml Other 850 ml 850 ml Output Urine Total 200 ml # Voids 2 # Bowel Movements 2 Height (Feet): 5 Height (Inches): 5.00 Weight (Pounds): 135 Objective WDWN NAD clear breath sounds bilaterally without rhonchi or wheeze [id number] without MRG NABS nontender no HSM no CCE nonfocal confused Geoffrey Bunch MD Feb 24, 2019 08:05
[2019-02-24] MEDS: Depakote ER 500mg tab ORAL SCH ×2 (08:18→20:48)
--- NOTE | 2019-02-24 10:08 | NUR ---
MARKET SPECIALISTSAVE ALL OPERATOR SI:AGITATION VS: BP 96/58, P 64, T 97.1, RR 19, SpO2 94 IS:BENADRYL 25mg DEPAKOTE 500mg METFORMIN 500mg SYNTHROID 75mcg MED/SURG STATUS
--- NOTE | 2019-02-24 11:38 | NUR ---
Social Service Note HARJINDER contacted previous SNF [facility] [phone], prior to [facility] Gonzales to determine family involvement. Patient discharged from facility 12/22/2018. Patient with no listed next of kin. HARJINDER contacted the public guardian's office [phone] and patient was deemed a non-handle on two accounts 2015 and 2017, which indicates a facility was able to manage patient's needs. Patient is non-represented. Will continue to be available as needed.
[2019-02-24 12:00] VITALS: BP 161/84
[2019-02-24 16:00] VITALS: BP 136/61
[2019-02-24] MEDS: DiphenhydrAMINE 50mg/ml Inj IM PRN (17:21)
--- NOTE | 2019-02-24 19:44 | Psych Consult Progress Note ---
Psychiatry Progress Note Psychiatry Progress Note Subjective the pt is disoriented agitated at time Medications Current Medications Medications (Trade) Dose Ordered Sig/Jesenia Route PRN Reason Start Time Stop Time Status Last Admin Dose Admin Bisacodyl (Dulcolax) 10 mg DAILY PRN RECTAL Constipation 02/15/19 04:45 03/17/19 04:44 Diphenhydramine HCl (Benadryl) 25 mg DAILY ORAL 02/15/19 09:00 03/17/19 08:59 02/24/19 08:18 Diphenhydramine HCl (Benadryl) 25 mg Q6H PRN IM agitation 02/17/19 13:45 03/19/19 13:44 02/24/19 17:21 Divalproex Sodium (Depakote ER) 500 mg EVERY 12 HOURS ORAL 02/17/19 21:00 03/19/19 20:59 02/24/19 08:18 Levothyroxine Sodium (Synthroid) 75 mcg DAILY@0630 ORAL 02/15/19 06:30 03/17/19 06:29 02/23/19 05:34 Lorazepam (Ativan 2mg/ml 1ml) 1 mg Q3H PRN IV For Anxiety 02/22/19 14:30 03/01/19 14:29 02/24/19 16:49 Metformin HCl (Glucophage) 500 mg BID@0630,1630 ORAL 02/15/19 06:30 03/17/19 06:29 02/24/19 16:49 Neurological/Psychiatric: Reports: anxiety, depressed, emotional problems Allergies: Coded Allergies: No Known Allergies (Unverified , 02/14/19) Objective Data Height (Feet): 5 Height (Inches): 5.00 Weight (Pounds): 135 General Appearance: WD/WN, alert, confused, agitated Appearance: disheveled Behavior Mannerisms: good eye contact Mental Status Exam - Affect: flat Mental Status Exam - Mood: depressed, anxious Speech: clear Perceptual Disturbances: hallucinations Mental Status Exam - Suicidal: not present Assessment/Plan Problem List: (1) Agitation ICD Codes: R45.1 - Restlessness and agitation SNOMED: [id number] Status: stable Assessment/Plan: Encephalopathy. PLAN: 1. We will continue current medications. 2. Provide the patient with the reality orientation and supportive therapy. Marilyn Liriano MD Feb 24, 2019 19:44
--- NOTE | 2019-02-24 19:54 | NUR ---
NURSE NOTES: Received patient asleep, on bilateral soft wrist restraints. Kept clean and dry.
[2019-02-24 20:00] VITALS: BP 166/64
[2019-02-25] VITALS: BP 141/61
[2019-02-25 04:00] VITALS: BP 126/57
[2019-02-25] MEDS: metFORMIN 500mg tab ORAL SCH ×2 (05:53→16:28)
--- NOTE | 2019-02-25 07:25 | NUR ---
HAND-OFF: Report given to Maryanne Box RN.
--- NOTE | 2019-02-25 07:30 | NUR ---
NURSE NOTES: Received pt from DONA WONG. Pt is confused and orient x1. Pt is in RA, No SOB or acute respiratory distress noted. pt has intact iv access LAC 22G SL. All needs attended, bed is locked and is in the lowest position. call light within easy reach. will continue to monitor.
[2019-02-25 08:00] VITALS: BP 138/71
--- NOTE | 2019-02-25 08:30 | General Progress Note ---
Assessment/Plan Status: stable Assessment/Plan: IMPRESSION diabetes hypertension schizophrenia toxic metabolic encephalopathy acute psychosis UTI PLAN care as is on zosyn x 2 days restraints as needed advance psych rx- and await clearance snf meds will need locked snf unit- awaiting CM to assist impression, plan, and exam edited and reviewed in detail care discussed with RN Subjective Allergies: Coded Allergies: No Known Allergies (Unverified , 02/14/19) Subjective care noted psych appreciated Objective Last 24 Hour Vital Signs Date Time Temp Pulse Resp B/P (MAP) Pulse Ox O2 Delivery O2 Flow Rate FiO2 02/25/19 04:00 96.2 55 16 126/57 (80) 96 02/25/19 00:00 96.7 56 14 141/61 (87) 95 02/24/19 21:00 Room Air 02/24/19 20:00 97.3 56 16 166/64 (98) 98 02/24/19 16:00 97.9 82 20 136/61 (86) 98 02/24/19 12:00 96.8 80 20 161/84 (109) 96 02/24/19 09:00 Room Air Intake and Output 02/24/19 02/25/19 19:00 07:00 Intake Total 120 ml Balance 120 ml Intake Oral 120 ml # Voids 3 1 # Bowel Movements 1 Height (Feet): 5 Height (Inches): 5.00 Weight (Pounds): 135 Objective WDWN NAD clear breath sounds bilaterally without rhonchi or wheeze [id number] without MRG NABS nontender no HSM no CCE nonfocal confused Geoffrey Bunch MD Feb 25, 2019 08:30
[2019-02-25] MEDS: Depakote ER 500mg tab ORAL SCH ×2 (08:49→20:50)
[2019-02-25 11:51] VITALS: BP 133/66
--- NOTE | 2019-02-25 12:19 | NUR ---
ASSISTANCE REPRESENTATIVEUNDERWRITING ANALYST SI:TOXIC METABOLIC ENCEPHALOPATHY . ACUTE PSYCHOSIS VS: BP 158/83, P 55, T 96.2, RR 20, SpO2 96 IS:DEPAKOTE 500mg BENADRYL 25mg METFORMIN 500mg SYNTHROID 75mcg MED/SURG STATUS
--- NOTE | 2019-02-25 14:56 | NUR ---
*-* INSURANCE *-* UPDATED CLINICALS AND REVIEWS HAVE BEEN FAXED TO: [employer] AUTH# [id number] GLORY: DEBBI F:[phone] (FAX CLINICALS)
[2019-02-25 15:59] VITALS: BP 132/70
--- NOTE | 2019-02-25 19:20 | NUR ---
HAND-OFF: Report given to DONA WONG.
--- NOTE | 2019-02-25 19:56 | NUR ---
NURSE NOTES: Received patient comfortably sleeping, on bilateral soft wrist restraints.
[2019-02-25 20:00] VITALS: BP 158/83
--- NOTE | 2019-02-25 22:45 | Progress Note ---
DATE: 02/25/2019 SUBJECTIVE: The patient continues to be in restraint, confused, and disoriented, has episodes of agitation, memory impairment, and not engaged during the evaluation. MENTAL STATUS EXAMINATION: The patient is asleep, little disoriented. Mood is agitation. Affect is flat. Thought process, there is a paucity of thought content. Thought content, no suicidal or homicidal ideations. ASSESSMENT: 1. We will continue the Depakote 500 mg twice a day. 2. Ativan p.r.n. 3. We will continue to follow and readjust the medications. Marilyn Liriano M.D. DR: HANANE JOB#: [id number] CC:
[2019-02-26] VITALS: BP 126/77
[2019-02-26 04:00] VITALS: BP 122/56
[2019-02-26] MEDS: metFORMIN 500mg tab ORAL SCH ×2 (05:33→16:53)
--- NOTE | 2019-02-26 07:24 | NUR ---
HAND-OFF: Report given to Yesenia Ricardo RN.
--- NOTE | 2019-02-26 07:36 | NUR ---
NURSE NOTES: asleep. in no distress.
[2019-02-26 08:00] VITALS: BP 121/64
[2019-02-26] MEDS: Depakote ER 500mg tab ORAL SCH ×2 (08:43→21:07)
--- NOTE | 2019-02-26 10:25 | NUR ---
*-* INSURANCE *-* UPDATED CLINICALS HAVE BEEN FAXED TO: [employer] AUTH# [id number] GLORY: DEBBI F:[phone] (FAX CLINICALS)
[2019-02-26 12:03] VITALS: BP 134/74
--- NOTE | 2019-02-26 12:40 | NUR ---
RESPIRATORY CARE PRACTITIONERPORT STEWARD SI:TOXIC METABOLIC ENCEPHALOPATHY . ACUTE PSYCHOSIS VS: BP 122/56, P 53, T 97.5, RR 20, SpO2 96 IS:DEPAKOTE 500mg BENADRYL 25mg METFORMIN 500mg SYNTHROID 75mcg MED/SURG STATUS
--- NOTE | 2019-02-26 14:50 | NUR ---
LOW ALTITUDE [employer] DEFENSE GUNNER NOTES FOLLOWED UP WITH [facility] THEY ARE UNABLE TO ACCEPT PT. AT THIS TIME FOLLOWED UP WITH [facility] NO ANSWER, RADIATION THERAPY TECHNOLOGIST IS OUT IN THE FIELD WILL CONTINUE FAXING OUT THE REFERRAL
--- NOTE | 2019-02-26 14:53 | Pulmonology Progress Note ---
Assessment/Plan Assessment/Plan Pulmonary Progress Note Assessment/Plan: IMPRESSION diabetes hypertension schizophrenia toxic metabolic encephalopathy acute psychosis UTI PLAN care as is on zosyn x 2 days restraints as needed advance psych rx- and await clearance snf meds will need locked snf unit- awaiting CM to assist impression, plan, and exam edited and reviewed in detail care discussed with RN Subjective Allergies: Coded Allergies: No Known Allergies Subjective care noted psych appreciated Objective Vital Signs Noted Height (Feet): 5 Height (Inches): 5.00 Weight (Pounds): 135 Objective WDWN NAD clear breath sounds bilaterally without rhonchi or wheeze [id number] without MRG NABS nontender no HSM no CCE nonfocal confused Subjective ROS Limited/Unobtainable: No Allergies: Coded Allergies: No Known Allergies (Unverified , 02/14/19) Objective Last 24 Hour Vital Signs Date Time Temp Pulse Resp B/P (MAP) Pulse Ox O2 Delivery O2 Flow Rate FiO2 02/26/19 12:03 97.9 62 18 134/74 (94) 97 02/26/19 09:14 Room Air 02/26/19 08:00 98.1 56 20 121/64 (83) 98 02/26/19 04:00 97.5 53 18 122/56 (78) 96 02/26/19 00:00 98.1 63 18 126/77 (93) 98 02/25/19 20:22 Room Air 02/25/19 20:00 97.9 64 18 158/83 (108) 98 02/25/19 15:59 97.6 62 20 132/70 (90) 98 Intake and Output 02/25/19 02/26/19 19:00 07:00 Intake Total 360 ml Balance 360 ml Intake Oral 360 ml # Voids 3 3 Current Medications Medications (Trade) Dose Ordered Sig/Jesenia Route PRN Reason Start Time Stop Time Status Last Admin Dose Admin Bisacodyl (Dulcolax) 10 mg DAILY PRN RECTAL Constipation 02/15/19 04:45 03/17/19 04:44 Diphenhydramine HCl (Benadryl) 25 mg DAILY ORAL 02/15/19 09:00 03/17/19 08:59 02/26/19 08:43 Diphenhydramine HCl (Benadryl) 25 mg Q6H PRN IM agitation 02/17/19 13:45 03/19/19 13:44 02/24/19 17:21 Divalproex Sodium (Depakote ER) 500 mg EVERY 12 HOURS ORAL 02/17/19 21:00 03/19/19 20:59 02/26/19 08:43 Levothyroxine Sodium (Synthroid) 75 mcg DAILY@0630 ORAL 02/15/19 06:30 03/17/19 06:29 02/26/19 05:33 Lorazepam (Ativan 2mg/ml 1ml) 1 mg Q3H PRN IV For Anxiety 02/22/19 14:30 03/01/19 14:29 02/24/19 16:49 Metformin HCl (Glucophage) 500 mg BID@0630,1630 ORAL 02/15/19 06:30 03/17/19 06:29 02/26/19 05:33 Kali Howard MD Feb 26, 2019 14:53
--- NOTE | 2019-02-26 15:27 | NUR ---
NURSE NOTES: INCONTINENT URINE AND BM. MADE CLEAN AND DRY. TRIAD CREAM APPLIED TO SACRAL REDNESS AND COVERED WITH OPTIFOAM DRESSING.
--- NOTE | 2019-02-26 15:27 | NUR ---
RD ASSESSMENT & RECOMMENDATIONS SEE CARE ACTIVITY FOR COMPLETE ASSESSMENT DAILY ESTIMATED NEEDS: Needs based on DM 62.5kg 25-30 kcals/kg 6946-2477 total kcals 1-1.5 g protein/kg 63-94 g total protein 25-30 mL/kg 0651-4810 total fluid mLs NUTRITION DIAGNOSIS: 1) Increased pro needs r/t wound healing as evidenced by pt w/ sacral partial thickness wound. 2) Altered nutrition related lab values r/t diabetes as evidenced by BG on adm 222. CURRENT DIET: CCHO MED puree PO DIET RECOMMENDATIONS: CCHO MED/ texture as tolerated ADDITIONAL RECOMMENDATIONS: 1) Obtain a calibrated bed scale wt as able 2) TYPESETTING MACHINE OPERATOR/TENDER eval for possible diet texture upgrade for improved acceptance 3) Glucerna 1 tetra madalyn QD w/ variable PO intake 4) Wound care: add CRYSTAL BID + Vit C 250mg daily + MVI x1 5) Updated CBC and BMP
[2019-02-26 16:00] VITALS: BP 110/63
[2019-02-26] MEDS: DiphenhydrAMINE 50mg/ml Inj IM PRN (18:55)
--- NOTE | 2019-02-26 18:55 | NUR ---
NURSE NOTES: agitated and restless. incontinent urine. made clean adn Addendum: 02/26/19 at 1914 by DEMETRICE MCKENZIE RN disregard above notation. see next notation.
--- NOTE | 2019-02-26 18:55 | NUR ---
NURSE NOTES: agitated and restless.screaing. incontinent of urine. made clean and dry. given benadryl 25mg im as ordered. made comfortable in bed.
--- NOTE | 2019-02-26 19:14 | NUR ---
HAND-OFF: Report given to vargas garcía.
[2019-02-26 19:43] VITALS: BP 144/72
--- NOTE | 2019-02-26 20:40 | NUR ---
NURSE NOTES: Received patient awake,uncooperative,bilateral soft wrist restraints on.
[2019-02-27 00:04] VITALS: BP 155/80
[2019-02-27 03:44] VITALS: BP 151/74
[2019-02-27] MEDS: metFORMIN 500mg tab ORAL SCH ×2 (05:34→17:12)
--- NOTE | 2019-02-27 07:14 | NUR ---
HAND-OFF: Report given to Maryanne Box RN.
--- NOTE | 2019-02-27 07:30 | NUR ---
NURSE NOTES: Received pt from DONA WONG. Pt is confused and orient x1. pt is in RA, No SOB or acute respiratory distress noted. pt has intact iv access RFA 22G SL. a SHAFT HEADMAN is feeding breakfast. all needs attended, bed is locked and is in the lowest position. call light within easy reach. will continue to monitor.
[2019-02-27 08:00] VITALS: BP 125/63
--- NOTE | 2019-02-27 08:05 | General Progress Note ---
Assessment/Plan Status: stable Assessment/Plan: IMPRESSION diabetes hypertension schizophrenia toxic metabolic encephalopathy acute psychosis UTI PLAN care as is on zosyn x 2 days restraints as needed advance psych rx- and await clearance snf meds will need locked snf unit- awaiting CM to assist impression, plan, and exam edited and reviewed in detail care discussed with RN Subjective Allergies: Coded Allergies: No Known Allergies (Unverified , 02/14/19) Subjective care noted psych appreciated Objective Last 24 Hour Vital Signs Date Time Temp Pulse Resp B/P (MAP) Pulse Ox O2 Delivery O2 Flow Rate FiO2 02/27/19 03:44 97.0 74 18 151/74 (99) 98 02/27/19 00:04 97.8 66 18 155/80 (105) 97 02/26/19 20:16 Room Air 02/26/19 19:43 98.0 79 20 144/72 (96) 98 02/26/19 16:00 97.9 74 20 110/63 (79) 100 02/26/19 12:03 97.9 62 18 134/74 (94) 97 02/26/19 09:14 Room Air Intake and Output 02/26/19 02/27/19 19:00 07:00 Intake Total 360 ml 300 ml Balance 360 ml 300 ml Intake Oral 360 ml 300 ml # Voids 4 4 # Bowel Movements 3 1 Height (Feet): 5 Height (Inches): 5.00 Weight (Pounds): 136 Objective WDWN NAD clear breath sounds bilaterally without rhonchi or wheeze [id number] without MRG NABS nontender no HSM no CCE nonfocal confused Geoffrey Bunch MD Feb 27, 2019 08:05
[2019-02-27] MEDS: Depakote ER 500mg tab ORAL SCH (08:19)
[2019-02-27] MEDS: LORazepam Inj 2mg/ml 1ml IV PRN (11:54)
[2019-02-27 12:00] VITALS: BP 136/75
--- NOTE | 2019-02-27 13:13 | NUR ---
*-* INSURANCE *-* UPDATED CLINICALS and REVIEW HAVE BEEN FAXED TO: [employer] AUTH# [id number] GLORY: DEBBI F:[phone] (FAX CLINICALS)
--- NOTE | 2019-02-27 14:59 | NUR ---
NURSE NOTES:WOUND CARE FOLLOW-UP NOTES:Pt very restless and easily agitated. Partial; thickness pressure injury noted sacrum .Base of wound is moist and viable .Non-blanchable erythema without induration periwound. Pt is being positioned with pillows but is ineffective secondary to restlessness and agitation .Friction is concern . Moisture Barrier paste applied to sacrum and covered with Optifoam drsg to minimize friction.Moisture Barrier paste appied to surrounding areas of and both ischial areas Non-blanchable erythema without fluctuance noted to R and L heels Cavilon Skin Barrier applied and each heel covered with Optifoam drsgs. Pt attempting to kick staff during wound care. Tx. Plan: Apply Moisture Barrier Paste to Buttocks. Cover with Optifoam drsg. Change every 3 days and prn. Apply Moisture Barrier Paste to R and L ischium and bilat groin areas with each incontinence care. Apply Cavilon Skin Barrier to Both heels. Cover each heel with Optifoam drsg. Change every 7 days and prn. Reposition at least every 2hours or as tolerated. Off-load heels with pillow. Addendum: 02/27/19 at 1511 by Chen Edwards LVN ADDENDUM TO ABOVE WOUND NOTES: Sacral wound measures (L)1cm x (W)0.8cm.
[2019-02-27 16:00] VITALS: BP 124/74
--- NOTE | 2019-02-27 16:10 | NUR ---
SCHEDULE HANGERFIRST AID TEACHER SI:TOXIC METABOLIC ENCEPHALOPATHY . ACUTE PSYCHOSIS VS: BP 155/80, P 65, T 97.0, RR 18, SpO2 100 IS:LORAZEPAM 1mg IV DEPAKOTE 500mg METFORMIN 500mg SYNTHROID 75mcg MED/SURG STATUS
[2019-02-27] MEDS: OLANZapine 2.5mg tab ORAL SCH (17:13)
--- NOTE | 2019-02-27 18:15 | Progress Note ---
DATE: 02/26/2019 SUBJECTIVE: The patient is presenting with disorganized speech and behavior, agitated. Responding to internal stimuli. The patient is severely agitated and is in restraints. MENTAL STATUS EXAMINATION: The patient is alert, disoriented, confused, and agitated. Affect is flat. Thought process is disorganized. Thought content, no suicidal or homicidal ideation. Insight and judgment impaired. ASSESSMENT: Dementia with behavioral disturbance. PLAN: 1. The patient was continued on Depakote. 2. We will continue to reassess. Marilyn Liriano M.D. DR: HANANE JOB#: [id number] CC:
--- NOTE | 2019-02-27 18:15 | Progress Note ---
DATE: 02/27/2019 SUBJECTIVE: The patient is in bed, has a sitter in restraints. Has episodes of agitation. Continues to require Ativan p.r.n. The patient is disorganized, easily agitated. Poor memory. MENTAL STATUS EXAMINATION: The patient is alert, confused, disoriented. Mood is agitated. Affect is flat. Thought process, there is a paucity of thought content. Thought content, no suicidal or homicidal ideations. ASSESSMENT: 1. Dementia with behavioral disturbance. 2. Acute encephalopathy. PLAN: 1. Discontinue the Depakote and start the patient on Zyprexa 2.5 mg by mouth three times a day and then start the patient on Ativan p.r.n. 2. We will continue to follow and readjust the medication. Marilyn Liriano M.D. DR: HANANE JOB#: [id number] CC:
--- NOTE | 2019-02-27 19:30 | NUR ---
HAND-OFF: Report given to DONA RODRIGEZ.
--- NOTE | 2019-02-27 19:49 | NUR ---
NURSE NOTES: Received patient in bed, incontinent bowel and bladder, confused and disoriented, non behavioral restraints are on, patient is a feeder, on room air, IV site clean and intact, asymptomatic. Call light is within reach, bed is in low position, locked and alarm is on, will continue to monitor for comfort and safety.
[2019-02-27 20:00] VITALS: BP 131/71
[2019-02-28] VITALS: BP 118/59
[2019-02-28] MEDS: LORazepam 1mg tab ORAL PRN ×2 (04:23→12:51)
[2019-02-28 04:52] VITALS: BP 113/68
[2019-02-28] MEDS: metFORMIN 500mg tab ORAL SCH ×2 (06:10→17:09)
--- NOTE | 2019-02-28 07:10 | NUR ---
HAND-OFF: Report given to Maryanne CARCAMO.
--- NOTE | 2019-02-28 07:13 | NUR ---
NURSE NOTES: Received pt from DONA RODRIGEZ. Pt is confused and orient x1. pt is in RA, No SOB or acute respiratory distress noted. pt has intact iv access RFA 22G SL. a PROVIDER RELATIONS COORDINATOR is feeding breakfast. all needs attended, bed is locked and is in the lowest position. call light within easy reach. will continue to monitor.
[2019-02-28 08:00] VITALS: BP 117/63
--- NOTE | 2019-02-28 08:56 | NUR ---
DISCHARGE PLANNING FAXED REFERRAL TO: [facility] P [phone], F [phone] [facility] P [phone], F [phone] [facility] P [phone], F [phone] [facility] P [phone], F [phone] [facility] P [phone], F [phone] WILL FOLLOW UP.
[2019-02-28] MEDS: OLANZapine 2.5mg tab ORAL SCH ×3 (09:01→17:09)
[2019-02-28 12:00] VITALS: BP 121/62
--- NOTE | 2019-02-28 13:16 | NUR ---
MARKETING ANALYSTDIE STORAGE CLERK SI:TOXIC METABOLIC ENCEPHALOPATHY . ACUTE PSYCHOSIS VS: BP 118/59, P 69, T 96.0, RR 20, SpO2 94 IS:LORAZEPAM 1mg ZYPREXA 2.5mg BENADRYL 25mg METFORMIN 500mg SYNTHROID 75mcg MED/SURG STATUS
--- NOTE | 2019-02-28 15:01 | NUR ---
*-* INSURANCE *-* UPDATED CLINICALS and REVIEW HAVE BEEN FAXED TO: [employer] AUTH# [id number] GLORY: DEBBI F:[phone] (FAX CLINICALS)
[2019-02-28 16:00] VITALS: BP 131/73
--- NOTE | 2019-02-28 19:17 | NUR ---
HAND-OFF: Report given to DONA ISBELL.
--- NOTE | 2019-02-28 19:30 | NUR ---
NURSE NOTES: RECEIVED PATIENT LYING IN BED, AWAKE, ALERT/ORIENTED TO SELF, REALITY ORIENTATION PROVIDED DURING ASSESSMENT, REQUIRE FREQUENT INTERVENTIONS. DENIES PAIN IN [place]. NO SIGNS AND SYMPTOMS OF ACUTE CARDIO RESPIRATORY DISTRESS/SHORTNESS OF BREATH, NO EDEMA NOTED. BILATERAL WRIST RESTRAINTS INTACT TO PREVENT PATIENT FROM CLIMBING OUT OF BED. SIDE RAILS UP X3/BED IN LOWEST POSITION FOR SAFETY. FREQUENT ROUNDING FOR SAFETY/NEEDS. NAD.
[2019-02-28 20:00] VITALS: BP 128/78
--- NOTE | 2019-02-28 21:18 | Pulmonology Progress Note ---
Assessment/Plan Assessment/Plan Pulmonary Progress Note Assessment/Plan: IMPRESSION diabetes hypertension schizophrenia toxic metabolic encephalopathy acute psychosis UTI PLAN care as is on zosyn x 2 days restraints as needed advance psych rx- and await clearance snf meds will need locked snf unit- awaiting CM to assist impression, plan, and exam edited and reviewed in detail care discussed with RN Subjective Allergies: Coded Allergies: No Known Allergies Subjective care noted psych appreciated Objective Vital Signs Noted Height (Feet): 5 Height (Inches): 5.00 Weight (Pounds): 135 Objective WDWN NAD clear breath sounds bilaterally without rhonchi or wheeze [id number] without MRG NABS nontender no HSM no CCE nonfocal confused Subjective ROS Limited/Unobtainable: No Allergies: Coded Allergies: No Known Allergies (Unverified , 02/14/19) Objective Last 24 Hour Vital Signs Date Time Temp Pulse Resp B/P (MAP) Pulse Ox O2 Delivery O2 Flow Rate FiO2 02/28/19 16:00 98.3 100 19 131/73 (92) 96 02/28/19 12:00 97.1 70 16 121/62 (81) 97 02/28/19 09:00 Room Air 02/28/19 08:00 97.4 69 17 117/63 (81) 94 02/28/19 04:52 97.0 73 20 113/68 (83) 02/28/19 00:00 96.0 76 20 118/59 (78) Intake and Output 02/27/19 02/28/19 19:00 07:00 Intake Total 340 ml 270 ml Balance 340 ml 270 ml Intake Oral 340 ml 270 ml # Voids 1 2 # Bowel Movements 3 Current Medications Medications (Trade) Dose Ordered Sig/Jesenia Route PRN Reason Start Time Stop Time Status Last Admin Dose Admin Bisacodyl (Dulcolax) 10 mg DAILY PRN RECTAL Constipation 02/15/19 04:45 03/17/19 04:44 Diphenhydramine HCl (Benadryl) 25 mg DAILY ORAL 02/15/19 09:00 03/17/19 08:59 02/28/19 09:01 Diphenhydramine HCl (Benadryl) 25 mg Q6H PRN IM agitation 02/17/19 13:45 03/19/19 13:44 02/26/19 18:55 Levothyroxine Sodium (Synthroid) 75 mcg DAILY@0630 ORAL 02/15/19 06:30 03/17/19 06:29 02/28/19 06:10 Lorazepam (Ativan) 1 mg Q6H PRN ORAL For Anxiety 02/27/19 13:45 03/06/19 13:44 02/28/19 12:51 Metformin HCl (Glucophage) 500 mg BID@0630,1630 ORAL 02/15/19 06:30 03/17/19 06:29 02/28/19 17:09 Olanzapine (ZyPREXA) 2.5 mg TID ORAL 02/27/19 18:00 03/29/19 17:59 02/28/19 17:09 Kali Howard MD Feb 28, 2019 21:18
[2019-03-01] VITALS: BP 139/75
[2019-03-01 04:00] VITALS: BP 132/73
[2019-03-01] MEDS: metFORMIN 500mg tab ORAL SCH ×2 (06:19→17:11)
[2019-03-01] MEDS: LORazepam 1mg tab ORAL PRN ×2 (06:19→20:27)
[2019-03-01 08:00] VITALS: BP 119/72
--- NOTE | 2019-03-01 08:00 | NUR ---
NURSE NOTES: RECEIVED PATIENT A/A/OX1, CONFUSED AND CONSTANTLY KICKING AND FIDGETING IN BED. BLE SOFT WRIST RESTRAINTS FOR FALL RISK SIDERAILS ARE UP X3. HAS EXCELLENT APPETITE. BED ALARM IS ACTIVATED. IV ACCESS PATENT AND INTACT. KEPT BED IN THE LOWEST POSITION. WILL CONT MICHELE MONITOR.
[2019-03-01] MEDS: OLANZapine 2.5mg tab ORAL SCH ×3 (08:05→17:11)
[2019-03-01 12:00] VITALS: BP 146/71
--- NOTE | 2019-03-01 13:58 | Pulmonology Progress Note ---
Assessment/Plan Assessment/Plan Pulmonary Progress Note Assessment/Plan: IMPRESSION diabetes hypertension schizophrenia toxic metabolic encephalopathy acute psychosis - psychiatry following UTI No new complaints PLAN care as is IV zosyn restraints as needed advance psych rx- and await clearance snf meds will need locked snf unit- awaiting CM to assist impression, plan, and exam edited and reviewed in detail care discussed with RN Subjective Allergies: Coded Allergies: No Known Allergies Subjective care noted psych appreciated Objective Vital Signs Noted Height (Feet): 5 Height (Inches): 5.00 Weight (Pounds): 135 Objective WDWN NAD clear breath sounds bilaterally without rhonchi or wheeze [id number] without MRG NABS nontender no HSM no CCE nonfocal confused Subjective ROS Limited/Unobtainable: No Allergies: Coded Allergies: No Known Allergies (Unverified , 02/14/19) Objective Last 24 Hour Vital Signs Date Time Temp Pulse Resp B/P (MAP) Pulse Ox O2 Delivery O2 Flow Rate FiO2 03/01/19 12:00 98.0 105 18 146/71 (96) 98 03/01/19 09:00 Room Air 03/01/19 08:00 97.8 69 18 119/72 (88) 98 03/01/19 04:00 98.4 99 16 132/73 (92) 97 03/01/19 00:00 98.2 67 16 139/75 (96) 96 02/28/19 21:00 Room Air 02/28/19 20:00 97.7 106 18 128/78 (95) 97 02/28/19 16:00 98.3 100 19 131/73 (92) 96 Intake and Output 02/28/19 03/01/19 18:59 06:59 Intake Total 436 ml 300 ml Balance 436 ml 300 ml Intake Oral 436 ml 300 ml # Voids 3 Current Medications Medications (Trade) Dose Ordered Sig/Jesenia Route PRN Reason Start Time Stop Time Status Last Admin Dose Admin Bisacodyl (Dulcolax) 10 mg DAILY PRN RECTAL Constipation 02/15/19 04:45 03/17/19 04:44 Diphenhydramine HCl (Benadryl) 25 mg DAILY ORAL 02/15/19 09:00 03/17/19 08:59 03/01/19 08:06 Diphenhydramine HCl (Benadryl) 25 mg Q6H PRN IM agitation 02/17/19 13:45 03/19/19 13:44 02/26/19 18:55 Levothyroxine Sodium (Synthroid) 75 mcg DAILY@0630 ORAL 02/15/19 06:30 03/17/19 06:29 03/01/19 06:19 Lorazepam (Ativan) 1 mg Q6H PRN ORAL For Anxiety 02/27/19 13:45 03/06/19 13:44 03/01/19 06:19 Metformin HCl (Glucophage) 500 mg BID@0630,1630 ORAL 02/15/19 06:30 03/17/19 06:29 03/01/19 06:19 Olanzapine (ZyPREXA) 2.5 mg TID ORAL 02/27/19 18:00 03/29/19 17:59 03/01/19 13:32 Kali Howard MD Mar 01, 2019 13:58
[2019-03-01 15:51] VITALS: BP 141/89
--- NOTE | 2019-03-01 17:46 | NUR ---
SERVICE ORDER EXPEDITERWEB DESIGNER DEVELOPER SI:TOXIC METABOLIC ENCEPHALOPATHY . ACUTE PSYCHOSIS T 98 HR 88 RR 18 B/P 141/89 SATS 94% ON RA NO LABS TODAY IS:LORAZEPAM 1mg ZYPREXA 2.5mg BENADRYL 25mg METFORMIN 500mg SYNTHROID 75mcg MED/SURG STATUS
--- NOTE | 2019-03-01 19:06 | NUR ---
HAND-OFF: Report given to Ivelisse.
--- NOTE | 2019-03-01 19:30 | NUR ---
NURSE NOTES: RECEIVED PATIENT LYING IN BED, AWAKE, ALERT/ORIENTED TO PERSON ONLY, YELLING AT STAFF IN UKRAINIAN, NO SIGNS AND SYMPTOMS OF ACUTE CARDIO RESPIRATORY DISTRESS/SHORTNESS OF BREATH, NO EDEMA NOTED. BILATERAL WRIST RESTRAINTS INTACT TO PREVENT PATIENT FROM CLIMBING OUT OF BED, RESTRAINTS REINFORCED. ABLE TO MOVE UPPER AND LOWER EXTREMITIES WITHOUT DIFFICULTY. ABDOMEN SOFT/NON DISTENDED/BOWEL SOUNDS AUDIBLE, NO REPORT OF N/V/D. SIDE RAILS UP X3/BED IN LOWEST POSITION FOR SAFETY/BED ALARM ACTIVATED. NAD. DISCHARGE PLANNING ONGOING.
[2019-03-01 20:00] VITALS: BP 126/64
[2019-03-02] VITALS: BP 125/68
--- NOTE | 2019-03-02 00:15 | Progress Note ---
DATE: 03/01/2019 SUBJECTIVE: The patient continues to be easily agitated. Continues to be in restraints. Cognitive impairment. Not engaged. Waxing and waning conscious. Poor insight. MENTAL STATUS EXAMINATION: The patient is alert, confused, and disoriented. Mood is agitated. Affect is constricted. Congruent with mood. Thought process is concrete. Thought content, no suicidal or homicidal ideation. Memory, attention, and concentration is impaired. ASSESSMENT: Dementia with behavior disturbance and encephalopathy. PLAN: We will increase the Zyprexa to 5 mg b.i.d. Continue soft restraints. Provide the patient with reality orientation and supportive therapy. Marilyn Liriano M.D. DR: STEFAN JOB#: [id number] CC:
[2019-03-02 04:00] VITALS: BP 126/73
[2019-03-02] MEDS: metFORMIN 500mg tab ORAL SCH ×2 (06:41→16:30)
[2019-03-02 07:27] LABS: HEMATOCRIT 43.4 % (37.0-47.0); HEMOGLOBIN 14.4 G/DL (12.0-16.0); MEAN CORPUSCULAR VOLUME 90 FL (80-99); PLATELET COUNT 70 K/UL (150-450); RED BLOOD COUNT 4.81 M/UL (4.20-5.40); RED CELL DISTRIBUTION WIDTH 12.8 % (11.6-14.8); WHITE BLOOD COUNT 6.6 K/UL (4.8-10.8)
[2019-03-02 07:44] LABS: ANION GAP 12 mmol/L (5-15); BLOOD UREA NITROGEN 40 mg/dL (7-18); CALCIUM 9.9 MG/DL (8.5-10.1); CARBON DIOXIDE 25 MMOL/L (21-32); CHLORIDE 115 MMOL/L (98-107); CREATININE 0.9 MG/DL (0.55-1.30); POTASSIUM 3.6 MMOL/L (3.5-5.1); SODIUM 152 MMOL/L (136-145)
[2019-03-02 08:00] VITALS: BP 139/78
--- NOTE | 2019-03-02 08:00 | NUR ---
NURSE NOTES: RECEIVED PATIENT A/A/OX1, CONFUSED AND CONSTANTLY KICKING AND FIDGETING IN BED. BLE SOFT WRIST RESTRAINTS FOR FALL RISK. SIDERAILS ARE UP X3. HAS EXCELLENT APPETITE. BED ALARM IS ACTIVATED. IV ACCESS PATENT AND INTACT. KEPT BED IN THE LOWEST POSITION. WILL CONT TO MONITOR.
[2019-03-02] MEDS: OLANZapine 2.5mg tab ORAL SCH ×3 (08:16→17:46)
--- NOTE | 2019-03-02 10:58 | NUR ---
GLASS TINTERCONDUIT HELPER SI:DIABETES . HYPERTENSION VS: BP 142/87, P 104, T 97.4, RR 15, SpO2 97 NA 152, BUN 40, GLUCOSE 145, TSH 6.926, Plt. COUNT 70 IS:ZYPREXA 5mg LORAZEPAM 1mg GLUCOPHAGE 500mg SYNTHROID 75mcg MED/SURG STATUS
[2019-03-02 12:00] VITALS: BP 134/81
[2019-03-02] MEDS: D5 1/2NS 1,000 ML IV SCH (12:26)
[2019-03-02 16:00] VITALS: BP 142/87
--- NOTE | 2019-03-02 17:48 | NUR ---
NURSE NOTES: PATIENT APPEARS TO BE LETHARGIC. VSS. BREATHING IS UNLABORED. NO DISTRESS NOTED. KEPT HOB ELEVATED FOR ASPIRATION PRECAUTIONS. WILL CONT TO MONITOR.
--- NOTE | 2019-03-02 19:00 | NUR ---
HAND-OFF: Report given to Ivelisse.
--- NOTE | 2019-03-02 19:30 | NUR ---
NURSE NOTES: RECEIVED PATIENT LYING IN BED, APPEAR TO BE ASLEEP, EASILY AWAKENED, NO SIGNS AND SYMPTOMS OF ACUTE CARDIO RESPIRATORY DISTRESS/SHORTNESS OF BREATH, NO PERIPHERAL EDEMA NOTED. IV SITE TO LEFT FOREARM REDDENED/INFILTRATED-BILATERAL WRIST RESTRAINTS INTACT TO PREVENT PATIENT FROM REMOVING TUBINGS/CLIMBING OUT OF BED. NO REPORT OF GI DISCOMFORT. INCONTINENT CARE PROVIDED, TOLERATED WELL. SIDE RAILS UP X3/BED IN LOWEST POSITION FOR SAFETY, CALL LIGHT WITHIN REACH AT ALL TIMES. FREQUENT ROUNDING FOR SAFETY/NEEDS. CONTINUE WITH CURRENT PLAN OF CARE. NAD.
[2019-03-02 20:00] VITALS: BP 131/64
--- NOTE | 2019-03-02 20:39 | Pulmonology Progress Note ---
Assessment/Plan Assessment/Plan Pulmonary Progress Note Assessment/Plan: IMPRESSION diabetes hypertension dehydration schizophrenia toxic metabolic encephalopathy acute psychosis - psychiatry following UTI No new complaints PLAN IV fluids IV zosyn restraints as needed advance psych rx- and await clearance snf meds will need locked snf unit- awaiting CM to assist impression, plan, and exam edited and reviewed in detail care discussed with RN Subjective Allergies: Coded Allergies: No Known Allergies Subjective care noted psych appreciated Objective Vital Signs Noted Height (Feet): 5 Height (Inches): 5.00 Weight (Pounds): 135 Objective WDWN NAD clear breath sounds bilaterally without rhonchi or wheeze [id number] without MRG NABS nontender no HSM no CCE nonfocal confused Subjective ROS Limited/Unobtainable: No Allergies: Coded Allergies: No Known Allergies (Unverified , 02/14/19) Objective Last 24 Hour Vital Signs Date Time Temp Pulse Resp B/P (MAP) Pulse Ox O2 Delivery O2 Flow Rate FiO2 03/02/19 16:00 97.8 99 15 142/87 (105) 99 03/02/19 12:00 98.1 104 16 134/81 (98) 98 03/02/19 09:00 Room Air 03/02/19 08:00 98.3 87 16 139/78 (98) 98 03/02/19 04:00 97.3 78 20 126/73 (90) 98 03/02/19 00:00 97.8 71 20 125/68 (87) 97 03/01/19 21:00 Room Air Intake and Output 03/01/19 03/02/19 18:59 06:59 Intake Total 840 ml 1450 ml Balance 840 ml 1450 ml Intake Oral 840 ml 600 ml Other 850 ml # Voids 3 6 # Bowel Movements 1 Laboratory Tests 03/02/19 05:40: White Blood Count 6.6, Red Blood Count 4.81, Hemoglobin 14.4, Hematocrit 43.4, Mean Corpuscular Volume 90, Mean Corpuscular Hemoglobin 29.8, Mean Corpuscular Hemoglobin Concent 33.1, Red Cell Distribution Width 12.8, Platelet Count 70L, Mean Platelet Volume 7.5, Neutrophils (%) (Auto) , Lymphocytes (%) (Auto) , Monocytes (%) (Auto) , Eosinophils (%) (Auto) , Basophils (%) (Auto) , Differential Total Cells Counted 100, Neutrophils % (Manual) 56, Lymphocytes % ( Manual) 38, Monocytes % (Manual) 5, Eosinophils % (Manual) 1, Basophils % ( Manual) 0, Band Neutrophils 0, Platelet Estimate DecreasedL, Platelet Morphology Normal, Red Blood Cell Morphology Normal, Sodium Level 152H, Potassium Level 3.6, Chloride Level 115H, Carbon Dioxide Level 25, Anion Gap 12 , Blood Urea Nitrogen 40H, Creatinine 0.9, Estimat Glomerular Filtration Rate , Glucose Level 145H, Calcium Level 9.9, Thyroid Stimulating Hormone (TSH) 6.926H Current Medications Medications (Trade) Dose Ordered Sig/Jesenia Route PRN Reason Start Time Stop Time Status Last Admin Dose Admin Bisacodyl (Dulcolax) 10 mg DAILY PRN RECTAL Constipation 02/15/19 04:45 03/17/19 04:44 Dextrose/Sodium Chloride 1,000 ml @ 60 mls/hr [id number] IV 03/02/19 11:30 04/01/19 11:29 03/02/19 12:26 Diphenhydramine HCl (Benadryl) 25 mg DAILY ORAL 02/15/19 09:00 03/17/19 08:59 03/02/19 08:16 Diphenhydramine HCl (Benadryl) 25 mg Q6H PRN IM agitation 02/17/19 13:45 03/19/19 13:44 02/26/19 18:55 Levothyroxine Sodium (Synthroid) 75 mcg DAILY@0630 ORAL 02/15/19 06:30 03/17/19 06:29 03/02/19 06:40 Lorazepam (Ativan) 1 mg Q6H PRN ORAL For Anxiety 02/27/19 13:45 03/06/19 13:44 03/01/19 20:27 Metformin HCl (Glucophage) 500 mg BID@0630,1630 ORAL 02/15/19 06:30 03/17/19 06:29 03/02/19 06:41 Olanzapine (ZyPREXA) 5 mg TID ORAL 03/02/19 09:00 04/01/19 08:59 03/02/19 12:26 Kali Howard MD Mar 02, 2019 20:39
[2019-03-03] VITALS: BP 127/66
--- NOTE | 2019-03-03 02:30 | NUR ---
NURSE NOTES: Received report from DONA Oviedo. Patient awake on the bed. Patient is breathing unlabored and evenly without any signs of distress, discomfort, and SOB. No pain noted at this time. Patient has IV fluid running as ordered through RFA 24g IV. IV site currently intact and dry. Patient has bilateral soft restraint on both wrists due to patient safety. Patient is noted for pulling out medical devices and climbing out of the bed. Bed is placed at lowest level with alarm and brake on. Side rails are up x 3 for safety. Call light is placed within reach. Will continue to monitor and provide care as ordered.
--- NOTE | 2019-03-03 03:19 | NUR ---
HAND-OFF: Report given to DONA MICHEL.
[2019-03-03] MEDS: LORazepam 1mg tab ORAL PRN ×2 (03:30→13:41)
[2019-03-03] MEDS: D5 1/2NS 1,000 ML IV SCH (03:56)
[2019-03-03 04:00] VITALS: BP 133/72
[2019-03-03] MEDS: metFORMIN 500mg tab ORAL SCH ×2 (06:26→16:17)
--- NOTE | 2019-03-03 07:32 | NUR ---
HAND-OFF: Report given to JAYCE Le RN.
--- NOTE | 2019-03-03 07:54 | NUR ---
NURSE NOTES: Pt resting in bed. A/O x 1, agitated. Soft wrist restrains on , skin intact, N/V intact, skin warm to touch. no distress noted. no SOB. bed alarm on. will continue to monitor.
[2019-03-03 08:00] VITALS: BP 126/75
[2019-03-03] MEDS: OLANZapine 2.5mg tab ORAL SCH ×3 (08:13→17:26)
[2019-03-03 10:14] LABS: ANION GAP 9 mmol/L (5-15); BLOOD UREA NITROGEN 34 mg/dL (7-18); CALCIUM 9.1 MG/DL (8.5-10.1); CARBON DIOXIDE 27 MMOL/L (21-32); CHLORIDE 112 MMOL/L (98-107); POTASSIUM 3.7 MMOL/L (3.5-5.1); SODIUM 148 MMOL/L (136-145)
--- NOTE | 2019-03-03 10:42 | General Progress Note ---
Assessment/Plan Status: stable Assessment/Plan: IMPRESSION diabetes hypertension schizophrenia toxic metabolic encephalopathy acute psychosis UTI PLAN care as is on zosyn x 2 days restraints as needed advance psych rx- and await clearance snf meds will need locked snf unit- awaiting CM to assist impression, plan, and exam edited and reviewed in detail care discussed with RN Subjective Allergies: Coded Allergies: No Known Allergies (Unverified , 02/14/19) Subjective care noted psych appreciated Objective Last 24 Hour Vital Signs Date Time Temp Pulse Resp B/P (MAP) Pulse Ox O2 Delivery O2 Flow Rate FiO2 03/03/19 09:00 Room Air 03/03/19 08:00 97.4 76 20 126/75 (92) 95 03/03/19 04:00 97.7 89 18 133/72 (92) 96 03/03/19 00:00 98.2 85 18 127/66 (86) 97 03/02/19 21:00 Room Air 03/02/19 20:00 97.4 69 18 131/64 (86) 97 03/02/19 16:00 97.8 99 15 142/87 (105) 99 03/02/19 12:00 98.1 104 16 134/81 (98) 98 Intake and Output 03/02/19 03/03/19 19:00 07:00 Intake Total 860 ml 900 ml Output Total 1 ml Balance 860 ml 899 ml Intake Oral 500 ml 360 ml IV Total 360 ml 540 ml Stool Total 1 ml # Voids 2 5 Laboratory Tests 03/03/19 06:45: Sodium Level 148H, Potassium Level 3.7, Chloride Level 112H, Carbon Dioxide Level 27, Anion Gap 9, Blood Urea Nitrogen 34H, Creatinine 1.0, Estimat Glomerular Filtration Rate , Glucose Level 155H, Calcium Level 9.1 Height (Feet): 5 Height (Inches): 5.00 Weight (Pounds): 136 Objective WDWN NAD clear breath sounds bilaterally without rhonchi or wheeze [id number] without MRG NABS nontender no HSM no CCE nonfocal confused Geoffrey Bunch MD Mar 03, 2019 10:42
--- NOTE | 2019-03-03 11:00 | NUR ---
OPERATIONS BOARDMANSOFTWARE INTEGRATION DEVELOPER SI:DIABETES . HYPERTENSION VS: BP 151/98, P 103, T 97.2, RR 20, SpO2 96 Na 148, BUN 34, GLUCOSE 155 IS:D5/NS x1L IV ZYPREXA 5mg LORAZEPAM 1mg GLUCOPHAGE 500mg SYNTHROID 75mcg MED/SURG STATUS
[2019-03-03 12:00] VITALS: BP 134/73
--- NOTE | 2019-03-03 15:27 | NUR ---
P.T NOTE: P.T EVALUATION COMPLETED. BASED ON P.T EVALUATION, PATIENT BASELINED INDEPENDENT WITH ADL/FUNCTIONAL MOBILITIES AND GAIT/LOCOMOTION THEREFORE SKILLED P.T SERVICE IS NOT WARRANTED AT THIS TIME. PATIENT EDUCATED ON IMPORTANCE OF OOB ACTIVITIES VS BEDREST UNLESS OTHERWISE ORDERED. PATIENT ALSO WAS ADVISED TO USE THE FWW ESPECIALLY FOR LONG DISTANCE AMBULATION FOR SAFETY. PATIENT VERBALIZED UNDERSTANDING. NO FURTHER P.T FOLLOW UP NEEDED. Addendum: 03/03/19 at 1547 by LA KYLE PT THE ABOVE P.T NOTE WAS ENTERED TO THE WRONG PATIENT. PLEASE DISREGARD THE ABOVE P.T NOTE. THANK YOU!
[2019-03-03 16:00] VITALS: BP 163/90
--- NOTE | 2019-03-03 19:31 | NUR ---
HAND-OFF: Report given to DANA CARCAMO.
--- NOTE | 2019-03-03 19:47 | NUR ---
NURSE NOTES: Received report from DONA Edwards. Patient is laying on the bed with HOB elevated. Patient is awake and verbally responsive, but with confusion. Patient is breathing unlabored and evenly without signs of distress, discomfort, or SOB. No pain noted at this time. Right AC IV is currently intact and saline locked. Bed is placed at the lowest. Alarm, brake, and side rails are up and padded for safety measures. Patient has bilateral soft restraints to prevent pulling out the tubings and climbing out the bed. Pulse present bilaterally, skin is pink, warm to touch, and dry. Call light placed within reach. Will continue to monitor and provide care as ordered.
[2019-03-03 20:00] VITALS: BP 151/98
--- NOTE | 2019-03-03 20:30 | Progress Note ---
DATE: 03/03/2019 SUBJECTIVE: The patient is more cooperative and calmer. Continues to be confused, easily agitated, needs frequent redirection throughout the day. MENTAL STATUS EXAMINATION: The patient is alert and oriented x0. Mood is agitated. Affect is flat. Thought process, there is a paucity of thought content. Thought content, no suicidal or homicidal ideation. ASSESSMENT: 1. Dementia. 2. Encephalopathy. PLAN: 1. We will continue the olanzapine 5 mg three times a day. 2. Ativan p.r.n. 3. Provide the patient with reality orientation and supportive therapy. Marilyn Liriano M.D. DR: HANANE JOB#: [id number] CC:
--- NOTE | 2019-03-03 23:00 | NUR ---
NURSE NOTES: Patient is awake, restless, and confused. Non-pharmacological measures were made such as repositioning, attempting to communicate, offering snacks, and promoting comfort. Repositioning and attempting to communicate helped to alleviate the restlessness at this time. Patient seems more calm. Patient is breathing evenly and unlabored without any signs of distress. Call light is placed within reach. Bed placed at the lowest with alarm, brake, and side rails up x3 for safety measures. Bilateral soft wrist restraints were reassessed. Skin intact, warm to touch, dry, and pulse present bilaterally. Restraints are loose enough to fit two fingers. Will continue to monitor.
[2019-03-04] VITALS: BP 134/78
[2019-03-04] MEDS: LORazepam 1mg tab ORAL PRN (03:43)
[2019-03-04 04:00] VITALS: BP 129/65
[2019-03-04] MEDS: metFORMIN 500mg tab ORAL SCH ×2 (05:38→17:43)
--- NOTE | 2019-03-04 07:30 | NUR ---
HAND-OFF: Report given to DONA Byers.
[2019-03-04 08:00] VITALS: BP 120/67
--- NOTE | 2019-03-04 08:00 | NUR ---
NURSE NOTES: Patient is alert to name,respirations are unlabored.noted patient has soft wrist restraints on ,restraint off to give ROM execise to arm,restraint reapplied,skin intact,breakfast at bed side will assist patient.Bed alarm on,call light within reach.
--- NOTE | 2019-03-04 08:49 | General Progress Note ---
Assessment/Plan Status: stable Assessment/Plan: IMPRESSION diabetes hypertension schizophrenia toxic metabolic encephalopathy acute psychosis UTI PLAN care as is restraints as needed renew meds will need locked snf unit- awaiting CM to assist impression, plan, and exam edited and reviewed in detail care discussed with RN Subjective ROS Limited/Unobtainable: Yes Allergies: Coded Allergies: No Known Allergies (Unverified , 02/14/19) Subjective care noted psych appreciated unable to place meds renewed Objective Last 24 Hour Vital Signs Date Time Temp Pulse Resp B/P (MAP) Pulse Ox O2 Delivery O2 Flow Rate FiO2 03/04/19 08:00 97.6 65 20 120/67 (84) 98 03/04/19 04:00 97.3 81 16 129/65 (86) 96 03/04/19 00:00 97.5 75 16 134/78 (96) 98 03/03/19 21:00 Room Air 03/03/19 20:00 97.2 103 20 151/98 (115) 96 03/03/19 16:00 98.0 98 18 163/90 (114) 97 03/03/19 12:00 98.2 86 18 134/73 (93) 95 03/03/19 09:00 Room Air Intake and Output 03/03/19 03/04/19 19:00 07:00 Intake Total 1200 ml 120 ml Balance 1200 ml 120 ml Intake Oral 840 ml 120 ml IV Total 360 ml # Voids 5 3 # Bowel Movements 1 2 Height (Feet): 5 Height (Inches): 5.00 Weight (Pounds): 136 Objective WDWN NAD clear breath sounds bilaterally without rhonchi or wheeze [id number] without MRG NABS nontender no HSM no CCE nonfocal confused Geoffrey Bunch MD Mar 04, 2019 08:48
[2019-03-04] MEDS: OLANZapine 2.5mg tab ORAL SCH ×2 (09:14→13:00)
--- NOTE | 2019-03-04 10:43 | NUR ---
COAT OPERATORTRASH COLLECTOR SUPERVISOR SI:DIABETES . HYPERTENSION VS: BP 151/98, P 103, T 97.2, RR 20, SpO2 96 IS:ZYPREXA 5mg LORAZEPAM 1mg GLUCOPHAGE 500mg SYNTHROID 75mcg MED/SURG STATUS
[2019-03-04 12:16] VITALS: BP 123/72
--- NOTE | 2019-03-04 14:24 | NUR ---
INSURANCE UPDATED CLINICALS and REVIEW HAVE BEEN FAXED TO: [employer] F:[phone] (FAX CLINICALS) P:[phone]
--- NOTE | 2019-03-04 15:58 | NUR ---
NURSE NOTES:WOUND CARE FOLLOW-UP NOTES:Sacral pressure injury resolving. base of wound pink and dry with bordering non-blanchable erythema without induration. Pt did not exhibit any distress or agitation when sacral area palpated. Both heels are boggy but blanchable. Moisture barrier paste applied to sacrum. Covered with Optifoam drsg. Cavilon Skin BArrier applied to each heel and each heel covered with Optifoam drsg. Pt positioned with pillow on side. Both heels [id number] off bed with pillow. No new skin concerns noted. Wound Tx is effective and continued as ordered. All wound prevention protocols continued as care planned.
[2019-03-04 16:16] VITALS: BP 131/74
--- NOTE | 2019-03-04 18:30 | Progress Note ---
DATE: 03/04/2019 SUBJECTIVE: The patient is calmer, more directable. Has poor memory. Easily agitated. Has been on Zyprexa and compliant with medication. Medication was not given this morning as the patient was asleep. MENTAL STATUS EXAMINATION: The patient is alert, confused, disoriented. Mood is neutral. Affect is flat. Thought process, there is a paucity of thought content. Thought content, no suicidal or homicidal ideations. ASSESSMENT: Dementia with behavior disturbance. PLAN: 1. Continue the Zyprexa. 2. Discontinue the restraints. 3. Discussed with . Marilyn Liriano M.D. DR: CAITIE JOB#: [id number] CC:
--- NOTE | 2019-03-04 18:59 | NUR ---
NURSE NOTES: Patient awake sitting up in bed ,just l slightly combative,tolerated her dinner.Bed alarm is on.
--- NOTE | 2019-03-04 19:30 | NUR ---
HAND-OFF: Report given to KATELYNN WIN RN
--- NOTE | 2019-03-04 19:44 | NUR ---
NURSE NOTES: Received report from DONA Byers. Patient is awake and verbally responsive with confusion. Patient is breathing unlabored and evenly on room air without any signs of distress, discomfort, and SOB. No signs of pain noted at this time. Right forearm IV site intact and wrapped with kerlix to protect the site and prevent patient from pulling out the IV. Patient has bilateral soft wrist restraints at this time to prevent patient from pulling out the IV and from falling off the bed. Patient is noted for climbing out of the bed. Pulses are present, skin is pink, warm to touch, and dry on bilateral wrist. Bed is placed at the lowest with alarm, brake, and side rails up and padded for safety measures. Call light placed within reach. Will continue to monitor frequently and provide care as ordered.
[2019-03-04 20:00] VITALS: BP 128/65
[2019-03-05] VITALS: BP 124/71
[2019-03-05] MEDS: LORazepam 1mg tab ORAL PRN (01:19)
[2019-03-05 04:00] VITALS: BP 126/63
[2019-03-05] MEDS: metFORMIN 500mg tab ORAL SCH ×2 (05:47→17:15)
--- NOTE | 2019-03-05 07:12 | NUR ---
HAND-OFF: Report given to DONA Byers. Patient in stable condition.
--- NOTE | 2019-03-05 07:49 | NUR ---
NURSE NOTES: Patient is alert to name,respirations unlabored.Soft wrist restraints on,per report patient attempts to get out of bed .Will provide range of motions to bilateral arm.No redness noted,skin intact. IV to the right arm remains intact and wrap in kerlix to prevent patient from pulling out . Patient ate breakfast.Bed alarm is on,call light within reach.
[2019-03-05 08:00] VITALS: BP 148/74
--- NOTE | 2019-03-05 10:34 | Pulmonology Progress Note ---
Assessment/Plan Assessment/Plan Pulmonary Progress Note Assessment/Plan: IMPRESSION diabetes hypertension schizophrenia toxic metabolic encephalopathy acute psychosis UTI PLAN care as is restraints as needed renew meds will need locked snf unit- awaiting CM to assist impression, plan, and exam edited and reviewed in detail care discussed with RN Subjective ROS Limited/Unobtainable: Yes Allergies: Coded Allergies: No Known Allergies (Unverified , 02/14/19) Subjective care noted psych appreciated unable to place meds renewed Objective Vital Signs Noted Height (Feet): 5 Height (Inches): 5.00 Weight (Pounds): 136 Objective WDWN NAD clear breath sounds bilaterally without rhonchi or wheeze [id number] without MRG NABS nontender no HSM no CCE nonfocal confused Subjective ROS Limited/Unobtainable: No Allergies: Coded Allergies: No Known Allergies (Unverified , 02/14/19) Objective Last 24 Hour Vital Signs Date Time Temp Pulse Resp B/P (MAP) Pulse Ox O2 Delivery O2 Flow Rate FiO2 03/05/19 08:00 97.3 99 20 148/74 (98) 100 03/05/19 05:00 Room Air 03/05/19 04:00 97.7 86 17 126/63 (84) 98 03/05/19 00:00 98.2 89 17 124/71 (88) 98 03/04/19 21:00 Room Air 03/04/19 20:00 97.9 93 18 128/65 (86) 98 03/04/19 16:16 96.2 62 20 131/74 (93) 96 03/04/19 12:16 96.6 71 20 123/72 (89) 98 Intake and Output 03/04/19 03/05/19 19:00 07:00 Intake Total 480 ml 360 ml Balance 480 ml 360 ml Intake Oral 480 ml 360 ml # Voids 5 3 # Bowel Movements 1 2 Current Medications Medications (Trade) Dose Ordered Sig/Jesenia Route PRN Reason Start Time Stop Time Status Last Admin Dose Admin Bisacodyl (Dulcolax) 10 mg DAILY PRN RECTAL Constipation 02/15/19 04:45 03/17/19 04:44 Diphenhydramine HCl (Benadryl) 25 mg DAILY ORAL 02/15/19 09:00 03/17/19 08:59 03/05/19 08:44 Diphenhydramine HCl (Benadryl) 25 mg Q6H PRN IM agitation 02/17/19 13:45 03/19/19 13:44 02/26/19 18:55 Levothyroxine Sodium (Synthroid) 75 mcg DAILY@0630 ORAL 02/15/19 06:30 03/17/19 06:29 03/05/19 05:47 Lorazepam (Ativan) 1 mg Q6H PRN ORAL For Anxiety 02/27/19 13:45 03/06/19 13:44 03/05/19 01:19 Metformin HCl (Glucophage) 500 mg BID@0630,1630 ORAL 02/15/19 06:30 03/17/19 06:29 03/05/19 05:47 Olanzapine (ZyPREXA) 5 mg TID ORAL 03/04/19 18:00 04/01/19 17:59 03/05/19 08:44 Kail Howard MD Mar 05, 2019 10:34
[2019-03-05 12:00] VITALS: BP 143/73
--- NOTE | 2019-03-05 13:54 | NUR ---
CHARGE NURSE NOTE: Patient became very agitated, screaming, kicking in the bed, trying remove her restraints and get out of the bed. Dr. Liriano was notified.
[2019-03-05] MEDS: DiphenhydrAMINE 50mg/ml Inj IM PRN (14:13)
[2019-03-05] MEDS ORDERED: LORazepam Inj 2mg/ml 1ml IV PRN ×2 (14:30)
--- NOTE | 2019-03-05 15:04 | NUR ---
NANOFABRICATION SPECIALISTFIRE TRUCK DRIVER SI:DIABETES VS:BP 148/74, P 101, T 97.3, RR 20, SpO2 97 IS:BENADRYL 25mg ZYPREXA 5mg GLUCOPHAGE 500mg SYNTHROID 75mcg PLAN: CONTINUE ZYPREXA DISCONTINUE RESTRAINTS MED/SURG STATUS
--- NOTE | 2019-03-05 15:20 | NUR ---
INSURANCE UPDATED CLINICALS and REVIEW HAVE BEEN FAXED TO: [email or web address] F:[phone] (FAX CLINICALS) P:[phone]
[2019-03-05 16:00] VITALS: BP 154/85
--- NOTE | 2019-03-05 18:30 | NUR ---
NURSE NOTES: Patient resting,patient calmer,bilateral wrist restraint on,skin intact,ROM was provided.Bed alarm on,call light within reach.
--- NOTE | 2019-03-05 19:40 | NUR ---
HAND-OFF: Report given to RAQUEL CARCAMO.
[2019-03-05 20:00] VITALS: BP 128/70
--- NOTE | 2019-03-05 20:10 | NUR ---
NURSE NOTES: Pt is in bed, awake and verbal. Pt is rambling in Belarusian, pt is confused and restless. Bilat soft wrist restraints are in place for safety. Restraint sites asymptomatic. Pt is provided with reorientation, food and hydration. Pt was allowed to have ROM exercises. Fall precaution in place. Bed alarm on. Bed locked low in position, side rails up. Pt instructed to call for assistance, call light within reach. Pt will be monitored.
--- NOTE | 2019-03-05 20:30 | Progress Note ---
DATE: 03/05/2019 SUBJECTIVE: The patient is easily agitated. She was more agitated, confused today. Received Benadryl shot. The patient is not redirectable, yelling, screaming. MENTAL STATUS EXAMINATION: The patient is confused, disoriented. Mood is agitated. Affect is constricted, congruent with mood. Thought process is concrete. Thought content, no suicidal or homicidal ideation. PLAN: 1. The patient will be continued on Benadryl shot. 2. Provide the patient with reality orientation and supportive therapy. Marilyn Liriano M.D. DR: CAITIE JOB#: [id number] CC:
[2019-03-06] VITALS: BP 133/76
[2019-03-06 04:00] VITALS: BP 130/76
--- NOTE | 2019-03-06 04:22 | NUR ---
NURSE NOTES: Pt is in bed, asleep. Restraints in place for safety precaution and to avoid fall.
[2019-03-06] MEDS: metFORMIN 500mg tab ORAL SCH ×3 (05:37→17:04)
--- NOTE | 2019-03-06 06:10 | NUR ---
NURSE NOTES: Pt refused to take metformin 500 mg PO and Synthroid 75 mcg PO despite encouragement education.
--- NOTE | 2019-03-06 07:25 | NUR ---
HAND-OFF: Report given to Brionna Frye RN.Informed that pt is fall risk.
[2019-03-06 08:00] VITALS: BP 128/69
--- NOTE | 2019-03-06 08:00 | NUR ---
NURSE NOTES: Received report from Dario RN, pt laying in bed a/a/o with no signs of distress or other issues at this time. pt has bilateral soft restrains since she was trying to pull her IV last night. IV on the right FA gauge#22 heplock. call light within reach, bed in lowest position. side rales up x2. I will f/u as needed.
[2019-03-06 12:00] VITALS: BP 125/68
[2019-03-06] MEDS: DiphenhydrAMINE 50mg/ml Inj IM PRN (14:03)
[2019-03-06] MEDS ORDERED: LORazepam Inj 2mg/ml 1ml IM PRN (14:15)
--- NOTE | 2019-03-06 15:07 | General Progress Note ---
Assessment/Plan Status: stable Assessment/Plan: IMPRESSION diabetes hypertension schizophrenia toxic metabolic encephalopathy acute psychosis UTI PLAN care as is restraints as needed renew meds as needed will need locked snf unit- awaiting CM to assist impression, plan, and exam edited and reviewed in detail care discussed with RN Subjective ROS Limited/Unobtainable: Yes Allergies: Coded Allergies: No Known Allergies (Unverified , 02/14/19) Subjective care noted psych appreciated unable to place meds renewed Objective Last 24 Hour Vital Signs Date Time Temp Pulse Resp B/P (MAP) Pulse Ox O2 Delivery O2 Flow Rate FiO2 03/06/19 12:00 98.5 90 19 125/68 (87) 98 03/06/19 09:00 Room Air 03/06/19 08:00 98.0 88 18 128/69 (88) 98 03/06/19 04:00 98.0 74 18 130/76 (94) 96 03/06/19 00:00 97.8 76 18 133/76 (95) 96 03/05/19 21:00 Room Air 03/05/19 20:00 98.4 85 20 128/70 (89) 96 03/05/19 16:00 97.6 98 20 154/85 (108) 97 Intake and Output 03/05/19 03/06/19 19:00 07:00 Intake Total 720 ml Balance 720 ml Intake Oral 720 ml # Voids 4 2 # Bowel Movements 3 Height (Feet): 5 Height (Inches): 5.00 Weight (Pounds): 136 Objective WDWN NAD clear breath sounds bilaterally without rhonchi or wheeze [id number] without MRG NABS nontender no HSM no CCE nonfocal confused Geoffrey Bunch MD Mar 06, 2019 15:07
[2019-03-06 16:00] VITALS: BP 115/66
--- NOTE | 2019-03-06 17:10 | NUR ---
FARM HELPERPOLYETHYLENE COMBINER SI:DIABETES T 98.5 HR 90 RR 19 B/P 125/68 SATS 98% onra NO LABS TODAY IS:BENADRYL 25mg ZYPREXA 5mg GLUCOPHAGE 500mg SYNTHROID 75mcg PLAN: CONTINUE ZYPREXA MED/SURG STATUS
--- NOTE | 2019-03-06 17:11 | NUR ---
INSURANCE REVIEW HAS BEEN FAXED TO: [employer] F:[phone] (FAX CLINICALS) P:[phone]
--- NOTE | 2019-03-06 19:30 | NUR ---
HAND-OFF: Report given to Dario RN, pt in stable condition.
[2019-03-06 20:00] VITALS: BP 112/70
--- NOTE | 2019-03-06 20:27 | NUR ---
NURSE NOTES: Pt is in bed, asleep. RR 18. HOB elevated. Pt was sedated last shift for increased agitation. Pt able to be awakened. Bilat soft wrist restraints are on, restraint sites are asymptomatic. Pt reoriented. Pt is provided with hydration and nutrition. Bed locked low in position,side rails up and call light within reach. Fall precaution in place. Bed alarm on. Pt will be monitored.
[2019-03-06] MEDS ORDERED: D5 1/2NS 1000ml IV ONE (20:52)
--- NOTE | 2019-03-06 21:15 | Progress Note ---
DATE: 03/06/2019 SUBJECTIVE: The patient was calmer today. Continues to have episodes of agitation. She required p.r.n. medication administration. The patient's memory is impaired, confused, disoriented, poor insight. MENTAL STATUS EXAMINATION: The patient is alert, confused, and disoriented. Mood is neutral to anxious. Affect is constricted, congruent with mood. Thought process is disorganized. Thought content, no suicidal or homicidal ideation. ASSESSMENT: Dementia with behavioral disturbance. PLAN: Continue current medications. Provide the patient with reality orientation and supportive therapy. Marilyn Liriano M.D. DR: HANANE JOB#: [id number] CC:
[2019-03-07] VITALS: BP 108/67
[2019-03-07 04:00] VITALS: BP 129/67
--- NOTE | 2019-03-07 05:00 | NUR ---
NURSE NOTES: Pt was turned and cleaned. Bed linen changed. Pt was fed and allowed to have ROM exercises. Pt reoriented.
[2019-03-07] MEDS: metFORMIN 500mg tab ORAL SCH ×2 (06:48→17:01)
--- NOTE | 2019-03-07 07:25 | NUR ---
HAND-OFF: Report given to Lenore Johnson LVN. Informed that patient is fall risk.
--- NOTE | 2019-03-07 07:45 | NUR ---
NURSE NOTES: PATIENT IS A/A/OX1, ITALIAN SPEAKING AND CONFUSED. ON GALEN WRIST RESTRAINTS FOR SAFETY AND FALL PRECAUTIONS. PATIENT ATTEMPTED TO ELOPE AND REMOVING DEVICES. ASSESSED SKIN INTEGRITY AND CIRCULATION. FEEDER 1:1. KEPT HOB ELEVATED FOR ASPIRATION PRECAUTIONS. SIDERAILS ARE UP X3. BED IS IN THE LOWEST POSITION AND LOCKED @ ALL TIMES. WILL CONT TO MONITOR.
[2019-03-07 08:00] VITALS: BP 122/75
--- NOTE | 2019-03-07 11:31 | NUR ---
DIRECTORY OPERATORBIOFUELS ENGINEERING MANAGER SI:DEMENTIA . BEHAVIORAL DISTURBANCE VS: BP 129/67, P 62, T 97.2, RR 20, SpO2 96 IS:BENADRYL 25mg ZYPREXA 5mg GLUCOPHAGE 500mg SYNTHROID 75mcg MED/SURG STATUS
[2019-03-07 12:00] VITALS: BP 126/80
--- NOTE | 2019-03-07 15:11 | Pulmonology Progress Note ---
Assessment/Plan Assessment/Plan Pulmonary Progress Note Assessment/Plan: IMPRESSION diabetes hypertension schizophrenia toxic metabolic encephalopathy acute psychosis UTI PLAN care as is restraints as needed renew meds will need locked snf unit- awaiting CM to assist impression, plan, and exam edited and reviewed in detail care discussed with RN Subjective ROS Limited/Unobtainable: Yes Allergies: Coded Allergies: No Known Allergies (Unverified , 02/14/19) Subjective care noted psych appreciated unable to place meds renewed Objective Vital Signs Noted Height (Feet): 5 Height (Inches): 5.00 Weight (Pounds): 136 Objective WDWN NAD clear breath sounds bilaterally without rhonchi or wheeze [id number] without MRG NABS nontender no HSM no CCE nonfocal confused Subjective ROS Limited/Unobtainable: No Allergies: Coded Allergies: No Known Allergies (Unverified , 02/14/19) Objective Last 24 Hour Vital Signs Date Time Temp Pulse Resp B/P (MAP) Pulse Ox O2 Delivery O2 Flow Rate FiO2 03/07/19 12:00 98.7 97 19 126/80 (95) 97 03/07/19 09:00 Room Air 03/07/19 08:00 98.9 96 18 122/75 (91) 96 03/07/19 04:00 98.0 71 20 129/67 (87) 97 03/07/19 00:00 97.9 77 20 108/67 (81) 98 03/06/19 21:00 Room Air 03/06/19 20:00 97.2 62 20 112/70 (84) 99 03/06/19 16:00 98.6 74 18 115/66 (82) 97 Intake and Output 03/06/19 03/07/19 19:00 07:00 Intake Total 500 ml Balance 500 ml Intake Oral 500 ml # Voids 2 # Bowel Movements 2 Current Medications Medications (Trade) Dose Ordered Sig/Jesenia Route PRN Reason Start Time Stop Time Status Last Admin Dose Admin Bisacodyl (Dulcolax) 10 mg DAILY PRN RECTAL Constipation 02/15/19 04:45 03/17/19 04:44 Diphenhydramine HCl (Benadryl) 25 mg DAILY ORAL 02/15/19 09:00 03/17/19 08:59 03/07/19 08:40 Diphenhydramine HCl (Benadryl) 25 mg Q6H PRN IM agitation 02/17/19 13:45 03/19/19 13:44 03/06/19 14:03 Levothyroxine Sodium (Synthroid) 75 mcg DAILY@0630 ORAL 02/15/19 06:30 03/17/19 06:29 03/07/19 06:48 Lorazepam (Ativan 2mg/ml 1ml) 1 mg Q6H PRN IM For Anxiety 03/06/19 14:15 03/13/19 14:14 Metformin HCl (Glucophage) 500 mg BID@0630,1630 ORAL 02/15/19 06:30 03/17/19 06:29 03/07/19 06:48 Olanzapine (ZyPREXA) 5 mg TID ORAL 03/04/19 18:00 04/01/19 17:59 03/07/19 13:10 Kali Howard MD Mar 07, 2019 15:11
--- NOTE | 2019-03-07 15:40 | NUR ---
INSURANCE REVIEW HAS BEEN FAXED TO: [employer] F:[phone] (FAX CLINICALS) P:[phone]
[2019-03-07 16:00] VITALS: BP 132/79
--- NOTE | 2019-03-07 19:19 | NUR ---
HAND-OFF: Report given to Ivelisse.
--- NOTE | 2019-03-07 19:53 | NUR ---
NURSE NOTES: RECEIVED PATIENT LYING IN BED,AWAKE,ALERT/ORIENTED TO PERSON, GREENLANDIC SPEAKING,DENIES PAIN IN GREENLAND[place]. NO SIGNS AND SYMPTOMS OF ACUTE CARDIO RESPIRATORY DISTRESS/SHORTNESS OF BREATH, NO EDEMA NOTED. IV INTACT SECURED WITH KERLEX. INCONTINENT CARE PROVIDED, TOLERATED WELL. BILATERAL WRIST RESTRAINTS REINFORCED TO PREVENT PATIENT FROM CLIMBING OUT OF BED, SIDE RAILS UP X3/BED IN LOWEST POSITION FOR SAFETY. CALL LIGHT WITHIN REACH. NAD.
[2019-03-07 20:00] VITALS: BP 128/70
--- NOTE | 2019-03-07 23:51 | NUR ---
NURSE NOTES: RECEIVED PATIENT LYING SUPINE IN BED,AWAKE,ALERT/ORIENTED X 1 TO PERSON, UKRAINIAN SPEAKING, DENIES PAIN IN UKRAINIAN. NO SIGNS AND SYMPTOMS OF ACUTE CARDIO RESPIRATORY DISTRESS/SHORTNESS OF BREATH, NO EDEMA NOTED. IV INTACT SECURED WITH KERLEX. INCONTINENT CARE PROVIDED, TOLERATED WELL. BILATERAL WRIST RESTRAINTS INTACT. NO SIGNS OF SKIN BREAKDOWN BENEATH WRIST RESTRAINTS. SIDE RAILS UP X3/BED IN LOWEST POSITION FOR SAFETY, LOCKED, BED ALARM ON. CALL LIGHT WITHIN REACH. NAD.
--- NOTE | 2019-03-07 23:59 | NUR ---
HAND-OFF: Report given to raquel moody.
[2019-03-08] VITALS: BP 133/64
--- NOTE | 2019-03-08 00:30 | Progress Note ---
DATE: 03/07/2019 SUBJECTIVE: The patient is presenting with disorganized speech and behavior, delusional. Memory impairment, easily agitated. The patient is still in restraints, not able to follow the direction. MENTAL STATUS EXAM: The patient is alert, confused, disoriented. Mood is agitated. Affect is flat. Thought process, there is a paucity of thought content. Thought content, no suicidal or homicidal ideation. ASSESSMENT: Dementia with behavior disturbance. PLAN: No medication changes. We will continue to follow. Marilyn Liriano M.D. DR: PIYUSH JOB#: [id number] CC:
[2019-03-08 04:00] VITALS: BP 139/75
[2019-03-08] MEDS: metFORMIN 500mg tab ORAL SCH ×3 (06:18→16:41)
--- NOTE | 2019-03-08 06:20 | NUR ---
NURSE NOTES: Crushed medications synthroid and metformin and pt refused medication after being scanned and prepared. will waste in pyxis
--- NOTE | 2019-03-08 07:03 | NUR ---
HAND-OFF: Report given to ALEKSEY Squires.
--- NOTE | 2019-03-08 07:48 | NUR ---
NURSE NOTES: RECEIVED PATIENT LYING SUPINE IN BED,AWAKE,ALERT/ORIENTED X 1 TO PERSON, ISRAELI SPEAKING, CALM AND COMFORTABLE. HAS EXCELLENT APPETITE. 1:1 FEEDER. DENIES PAIN IN ISRAELI. NO SIGNS AND SYMPTOMS OF ACUTE CARDIO RESPIRATORY DISTRESS/SHORTNESS OF BREATH, NO EDEMA NOTED. IV INTACT SECURED WITH KERLEX. INCONTINENT CARE PROVIDED, TOLERATED WELL. BILATERAL WRIST RESTRAINTS INTACT. NO SIGNS OF SKIN BREAKDOWN BENEATH WRIST RESTRAINTS. SIDE RAILS UP X3/BED IN LOWEST POSITION FOR SAFETY, LOCKED, BED ALARM ON. CALL LIGHT WITHIN REACH. NAD.
[2019-03-08 08:00] VITALS: BP 148/73
--- NOTE | 2019-03-08 09:21 | General Progress Note ---
Assessment/Plan Status: stable Assessment/Plan: IMPRESSION diabetes hypertension schizophrenia toxic metabolic encephalopathy acute psychosis UTI treated PLAN care as is restraints as needed renew meds as needed will need locked snf unit- awaiting CM to assist no other changes for now impression, plan, and exam edited and reviewed in detail care discussed with RN Subjective ROS Limited/Unobtainable: Yes Allergies: Coded Allergies: No Known Allergies (Unverified , 02/14/19) Subjective care noted psych noted meds renewed Objective Last 24 Hour Vital Signs Date Time Temp Pulse Resp B/P (MAP) Pulse Ox O2 Delivery O2 Flow Rate FiO2 03/08/19 04:00 97.5 67 18 139/75 (96) 98 03/08/19 00:00 97.8 98 18 133/64 (87) 98 03/07/19 21:00 Room Air 03/07/19 20:00 98.2 86 18 128/70 (89) 98 03/07/19 16:00 98.1 99 20 132/79 (96) 98 03/07/19 12:00 98.7 97 19 126/80 (95) 97 Intake and Output 03/07/19 03/08/19 18:59 06:59 Intake Total 480 ml Balance 480 ml Intake Oral 480 ml # Voids 1 Height (Feet): 5 Height (Inches): 5.00 Weight (Pounds): 136 Objective WDWN NAD clear breath sounds bilaterally without rhonchi or wheeze [id number] without MRG NABS nontender no HSM no CCE nonfocal confused Geoffrey Bunch MD Mar 08, 2019 09:21
[2019-03-08 12:00] VITALS: BP 149/82
--- NOTE | 2019-03-08 14:48 | NUR ---
CASE MANAGEMENT: REVIEW SI: TOXIC METABOLIC ENCEPHALOPATHY . AGITATION T 98.4 HR 90 RR 21 BP 149/82 SAT 97% ROOM AIR IS: ATIVAN IM Q6HR PRN ZYPREXA PO TID SYNTHROID PO QD RESTRAINTS NEEDED MED/SURG UNIT STATUS DCP: PATIENT IS FROM [facility]
--- NOTE | 2019-03-08 15:36 | NUR ---
CASE MANAGEMENT: [facility]IC[facility] FAXED TO : ALEXIS OROURKE [phone] PH / FAX [phone] ANA CHAU [phone] PH / FAX [phone] MARIA M MCKENNA [phone] PH / FAX [phone] [facility] [phone] PH / FAX [phone] KALEN CASEY [phone] PH / [phone] CM WILL FOLLOW UP
[2019-03-08 16:00] VITALS: BP 124/65
--- NOTE | 2019-03-08 19:00 | NUR ---
HAND-OFF: Report given to Precious .
--- NOTE | 2019-03-08 19:30 | NUR ---
NURSE NOTES: Received report & pt from ALEKSEY Squires. Pt lying in bed, telugu speaking, confused, in room air. No s/s of acute distress & no c/o of pain. IV site intact & S/L'd. B/L soft wrist restraints noted. Bed in lowest position, call light within reach. Will continue to monitor.
[2019-03-08 20:00] VITALS: BP 124/70
[2019-03-09] VITALS: BP 147/82
[2019-03-09 04:59] VITALS: BP 149/76
[2019-03-09] MEDS: metFORMIN 500mg tab ORAL SCH ×2 (06:10→17:29)
--- NOTE | 2019-03-09 06:45 | Progress Note ---
DATE: 03/08/2019 SUBJECTIVE: The patient continues to have episodes of agitation, confused, disoriented, not able to be engaged. MENTAL STATUS EXAMINATION: The patient is alert, oriented x0. Mood is agitated. Affect is flat. Thought process, there is a paucity of thought content. Thought content, no suicidal or homicidal ideation. ASSESSMENT: Dementia with behavior disturbance. PLAN: We will continue current medications. Provide the patient with reality orientation and supportive therapy. Marilyn Liriano M.D. DR: Ramy JOB#: [id number] CC:
--- NOTE | 2019-03-09 07:17 | General Progress Note ---
Assessment/Plan Status: stable Assessment/Plan: IMPRESSION diabetes hypertension schizophrenia toxic metabolic encephalopathy acute psychosis UTI treated PLAN care as is restraints as needed renew meds as needed will need locked snf unit- awaiting CM to assist no other changes for now impression, plan, and exam edited and reviewed in detail care discussed with RN Subjective ROS Limited/Unobtainable: Yes Allergies: Coded Allergies: No Known Allergies (Unverified , 02/14/19) Subjective care noted psych noted meds renewed Objective Last 24 Hour Vital Signs Date Time Temp Pulse Resp B/P (MAP) Pulse Ox O2 Delivery O2 Flow Rate FiO2 03/09/19 04:59 97.8 81 20 149/76 (100) 97 03/09/19 00:00 98.2 105 24 147/82 (103) 93 03/08/19 21:00 Room Air 03/08/19 20:00 98.1 70 20 124/70 (88) 97 03/08/19 16:00 97.3 82 19 124/65 (84) 97 03/08/19 12:00 98.4 90 21 149/82 (104) 97 03/08/19 09:00 Room Air 03/08/19 08:00 97.7 80 17 148/73 (98) 99 Intake and Output 03/08/19 03/09/19 19:00 07:00 Intake Total 120 ml Balance 120 ml Intake Oral 120 ml # Voids 3 Height (Feet): 5 Height (Inches): 5.00 Weight (Pounds): 136 Objective WDWN NAD clear breath sounds bilaterally without rhonchi or wheeze [id number] without MRG NABS nontender no HSM no CCE nonfocal confused Geoffrey Bunch MD Mar 09, 2019 07:17
--- NOTE | 2019-03-09 07:39 | NUR ---
NURSE NOTES: RECEIVED PATIENT HOB ELEVATED, AWAKE,ALERT/ORIENTED X 1, MAURITIAN SPEAKING, CALM AND COMFORTABLE. HAS EXCELLENT APPETITE. 1:1 FEEDER. DENIES PAIN IN MAURITIAN. NO SIGNS AND SYMPTOMS OF ACUTE CARDIO-RESPIRATORY DISTRESS/SHORTNESS OF BREATH, NO EDEMA NOTED. IV INTACT AND PATENT. INCONTINENT CARE PROVIDED, BILATERAL WRIST RESTRAINTS INTACT AND ASSESSED. SIDE RAILS UP X3/BED IN LOWEST POSITION FOR SAFETY, LOCKED, BED ALARM ON. CALL LIGHT WITHIN REACH. WILL CONT TO MONITOR.
--- NOTE | 2019-03-09 07:40 | NUR ---
HAND-OFF: Report given to ALEKSEY Squires. Rounds done. New IV site inserted left hand # 22 S/L'd.
[2019-03-09 08:00] VITALS: BP 156/84
[2019-03-09 12:00] VITALS: BP 152/86
[2019-03-09 16:00] VITALS: BP 150/85
--- NOTE | 2019-03-09 16:33 | NUR ---
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 BEHAVIORAL DISTURBANCE VS: BP 156/84, P 109, T 97.5, RR 20, SpO2 97 IS:SYNTHROID ZYPREXA 5mg METFORMIN 500mg MED/SURG STATUS
--- NOTE | 2019-03-09 19:07 | NUR ---
HAND-OFF: Report given to Yassine.
[2019-03-09 20:00] VITALS: BP 155/80
--- NOTE | 2019-03-09 23:36 | NUR ---
NURSE NOTES: Received pt. from ALEKSEY Squires. No acute distress noted. Respiration even and non labored on room air. No sob noted. IV line patent and intact. Pt. noted on bilateral wrist restraint, cap. refill <3sec. No injury noted. skin is intact. Bed in lowest position, wheels locked and alarm on. Side rails up x3. All needs attended and met. Will continue plan of care.
[2019-03-10] VITALS: BP 141/89
[2019-03-10] MEDS: DiphenhydrAMINE 50mg/ml Inj IM PRN (02:24)
[2019-03-10 04:00] VITALS: BP 100/70
[2019-03-10] MEDS: metFORMIN 500mg tab ORAL SCH ×2 (05:43→16:30)
--- NOTE | 2019-03-10 07:46 | NUR ---
HAND-OFF: Report given to DONA Byers.
[2019-03-10 08:00] VITALS: BP 105/73
--- NOTE | 2019-03-10 08:12 | General Progress Note ---
Assessment/Plan Status: stable Assessment/Plan: IMPRESSION diabetes hypertension schizophrenia toxic metabolic encephalopathy acute psychosis UTI treated PLAN care as is restraints as needed renew meds as needed will need locked snf unit- awaiting CM to assist no other changes for now impression, plan, and exam edited and reviewed in detail care discussed with RN Subjective Allergies: Coded Allergies: No Known Allergies (Unverified , 02/14/19) Subjective care noted psych noted meds renewed Objective Last 24 Hour Vital Signs Date Time Temp Pulse Resp B/P (MAP) Pulse Ox O2 Delivery O2 Flow Rate FiO2 03/10/19 04:00 97.6 76 18 100/70 (80) 97 03/10/19 00:00 98.3 80 18 141/89 (106) 96 03/09/19 21:00 Room Air 03/09/19 20:00 97.3 103 18 155/80 (105) 98 03/09/19 16:00 98.8 109 20 150/85 (106) 97 03/09/19 12:00 98.0 106 20 152/86 (108) 98 03/09/19 09:00 Room Air Intake and Output 03/09/19 03/10/19 19:00 07:00 Intake Total 840 ml 240 ml Balance 840 ml 240 ml Intake Oral 840 ml 240 ml # Voids 4 3 Height (Feet): 5 Height (Inches): 5.00 Weight (Pounds): 136 Objective WDWN NAD clear breath sounds bilaterally without rhonchi or wheeze [id number] without MRG NABS nontender no HSM no CCE nonfocal confused Geoffrey Bunch MD Mar 10, 2019 08:12
--- NOTE | 2019-03-10 10:17 | NUR ---
NURSE NOTES: Patient eyes closed responds to name,per report patient was up during the night ,patient now sleeping,respiration unlabored,bed alarm is on,call light within reach,soft wrist restraints on,ROM given ,skin inspected,intact,no redness noted.
[2019-03-10 12:00] VITALS: BP 107/58
--- NOTE | 2019-03-10 14:53 | NUR ---
NURSE NOTES: Patient opens eye falls back to sleep respirations unlabored unable to give medication at this time ,continue to monitor. Vitals stable.bed alarm is on,call light within reach.
--- NOTE | 2019-03-10 16:22 | NUR ---
DISCHARGE PLANNED PT WILL DC TO [facility] ROOM 5B LONG-TERM T [phone] FOR NURSE TO NURSE REPORT [facility] WILL WAX BLEACHER
[2019-03-10] MEDS ORDERED: ZYPREXA7.5 MG ORAL (18:40)
--- NOTE | 2019-03-10 18:45 | NUR ---
NURSE NOTE Report given to [facility]. patient more arousable,patient sleeping most of the day.Patient respond to verbally.Blood sugar 113mg/Dl Patient transport by [facility] personnel. IV saline lock removed.Hospital band,personal belonging sent with patient.
--- NOTE | 2019-03-10 19:45 | NUR ---
HAND-OFF: Report given to ELIA CARCAMO.
--- NOTE | 2019-03-10 20:10 | NUR ---
NURSE NOTES: DR Snider notified regarding Rheumatology consult.DR Snider state DR Mckeon is quality control technician until sunday.Oncoming nurse Amlaia CARCAMO notified DR Mckeon.Specimen sent to labfrom left elbow as ordered.
--- NOTE | 2019-03-11 04:15 | Progress Note ---
DATE: 03/10/2019 SUBJECTIVE: The patient is the same, confused, and disoriented. Continue to have episodes of agitation, not engaged in evaluation. MENTAL STATUS EXAMINATION: The patient is alert and confused. Mood is agitated. Affect is flat. Thought process, there is a paucity of thought content. Thought content, no suicidal or homicidal ideation. ASSESSMENT: Dementia with behavior disturbance. PLAN: We will continue current medications. Marilyn Liriano M.D. DR: MAG JOB#: [id number] CC:
--- NOTE | 2019-03-11 10:15 | Discharge Summary ---
Discharge Summary Discharge Summary _ DATE OF ADMISSION: 02/14/2019 DATE OF DISCHARGE: 03/10/2019 DISCHARGED BY: Dr. Bunch REASON FOR ADMISSION: 73 years old female with past medical history of hypertension, diabetes mellitus , schizophrenia, was sent to emergency room with chief complaint of agitation for psychiatric evaluation. Patient apparently was agitated and had confrontation with another resident, and as a results scratched that resident. Patient reported that she was calm. Patient was a poor historian and unable to provide much of information . She denied any trauma. She denied fever or chills. No chest pain or shortness of breath. Upon evaluation vital signs were stable. Laboratory work-up revealed no leukocytosis, stable hemoglobin and hematocrit , platelet count 79 . Stable electrolytes. BUN 22, creatinine 1.1 . Glucose 222. Urinalysis revealed evidence of urinary tract infection. Patient subsequently was admitted for further management.m CONSULTANTS: psychiatrist [facility] COURSE: Patient admitted to medical surgical floor. Patient started on the IV fluids and empiric antibiotic. Urine culture revealed E coli ESBL. Patient completed antibiotic treatment for UTI, Psychiatric evaluation was requested. Anxiolytic provided as needed. SNF medication resumed. Psychiatrist seen and evaluated patient. Per psychiatrist , patient has schizophrenia and dementia with behavioral disturbances. Anxiolytic provided as needed. Psychiatric medication regimen was further uptitrated as per psychiatrist. Patient provided with reality orientation supportive therapy. Blood pressure and blood sugar were closely monitored. Blood sugar was managed with metformin. TSH elevated, dose of levothyroxine was increased . Repeat TSH in 3 to 4 weeks. Bowel regimen instituted . Supportive care provided Patient was slowly improving. Placement was arranged to [facility] . Patient was stable for transfer FINAL DIAGNOSES: Toxic metabolic encephalopathy, likely due to UTI Urinary tract infection with E. coli ESBL Schizophrenia Dementia with behavioral disturbances Acute psychosis Diabetes mellitus Hypertension DISCHARGE MEDICATIONS: See Medication Reconciliation list. DISCHARGE INSTRUCTIONS: Patient was discharged to the [facility] senior care. Follow up with medical doctor at the facility. I have been assigned to dictate discharge summary for this account. I was not involved in the patient's management. Darcy Alonso NP Mar 11, 2019 10:15
== END 2019-03-10 18:59 | DRG 463 ==
LOC: EDBD 21:44 → EMR 22:08 → 4E 23:40 → EDBEDREQ 02-15 00:48 → 4E 02-15 01:15
DX: N39.0 Urinary tract infection, site not specified (principal); G92 Toxic encephalopathy; F03.91 Unspecified dementia, unspecified severity, with behavioral disturbance; D69.6 Thrombocytopenia, unspecified; F20.9 Schizophrenia, unspecified; E11.9 Type 2 diabetes mellitus without complications; F23 Brief psychotic disorder; B96.20 Unspecified Escherichia coli [E. coli] as the cause of diseases classified elsewhere; I10 Essential (primary) hypertension
CPT/HCPCS: 36415; 80048; 81001; 84443; 85007; 85025; 87081; 87086; 87181; 96361; 96365; 99285